=== PATIENT | female | born 1950 | race Caucasian/White ===

== ENCOUNTER 2024-03-11 10:06 | Inpatient (IN) | payer OTHER, MEDICAID ==
[2024-03-11] VITALS (8 sets, daily range): BP systolic 139–198; BP diastolic 60–102; PULSE 32–42; RESP 13–25; TEMP 98.3; O2SAT 95–97
[~2024-03-11] VITALS: Ht 162.6 cm; Wt 59.0 kg
[~2024-03-11 10:06] MED LIST: ASPirin 325 MG TAB PO ONE
--- NOTE | 2024-03-11 10:30 | ED.PDOC ---
SOB-HPI HPI Comments A 73 year old female presents to the ED with a chief complaint of shortness of breath onset 2 weeks ago. Patient states she stopped taking her blood pressure medication months ago. She states her friend checked her oxygen saturation 2 days ago, and it was reading in the 80s. Patient went to urgent care today due to experiencing progressively worsening shortness of breath. Patient's heart rate was in the 30s and code assist was called. She noticed her HR was in the 30s for the past couple days but states "she was feeling ok and did not think much of it." Upon ED arrival patient's HR is 33, O2 sat 97% on RA, BP 170/66. She is currently experiencing shortness of breath, intermittent chest tightness and fatigue. Patient has a past medical history of HTN and denies current chest pain, headache, nausea, vomiting, dizziness, fever or cough. No other symptoms or modifying factors present at this time. Chief Complaint: Shortness of Breath Time Seen by MD: 10:19 Reviewed notes: Medications, Allergies Information Source: Patient Mode of Arrival: Wheelchair Severity: Moderate Timing: Weeks Duration: Intermittent History of: None Prehospital treatment: None Associated Signs and Symptoms: Other (chest tightness) Quality: Tightness Radiation: No Radiation Past Medical History PAST MEDICAL HISTORY: HTN Surgical History: Denies all surgeries HYDROGRAPHIC SURVEYOR History: No Pertinent HYDROGRAPHIC SURVEYOR History Family History Family History: Unknown Social History Smoker: Other Alcohol: Rarely Drugs: Denies Drug Use Lives In: Home Constitutional: reports: weakness; denies: chills, diaphoresis, fatigue, fever, malaise, sweats, others EENTM: denies: blurred vision, double vision, ear bleeding, ear discharge, ear drainage, ear pain, ear ringing, eye pain, eye redness, hearing loss, mouth pain, mouth swelling, nasal discharge, nose bleeding, nose congestion, nose pain, photophobia, tearing, throat pain, throat swelling, voice changes, others Respiratory: reports: shortness of breath; denies: cough, hemoptysis, orthopnea, SOB at rest, SOB with excertion, stridor, wheezing, others Cardiovascular: denies: chest pain, dizzy spells, diaphoresis, Dyspnea on exertion, edema, irregular heart beat, left arm pain, lightheadedness, palpitations, PND, syncope, others Gastrointestinal: denies: abdomen distended, abdominal pain, blood streaked bowels, constipated, diarrhea, dysphagia, difficulty swallowing, hematemesis, melena, nausea, poor appetite, poor fluid intake, rectal bleeding, rectal pain, vomiting, others Genitourinary: denies: abnormal vagina bleeding, burning, dyspareunia, dysuria, flank pain, frequency, hematuria, incontinence, pain, , vagina discharge, urgency, others Neurological: denies: dizziness, fainting, headache, left sided numbness, left sided weakness, numbness, paresthesia, pre-existing deficit, right sided numbn ess, right sided weakness, seizure, speech problems, tingling, tremors, weakness, others Musculoskeletal: denies: back pain, gout, joint pain, joint swelling, muscle pain, muscle stiffness, neck pain, others Integumetry: denies: bruises, change in color, change in hair/nails, dryness, laceration, lesions, lumps, rash, wounds, others Allergic/Immunocompromised: denies: Difficulty Healing, Frequent Infections, Hives, Itching, others Hematologic/Lymphatic: denies: anemia, blood clots, easy bleeding, easy bruising, swollen glands, others Endocrine: denies: excessive hunger, excessive sweating, excessive thirst, excessive urination, flushing, intolerance to cold, intolerance to heat, unexplained weight gain, unexplained weight loss, others Psychiatric: denies: anxiety, bipolar disorder, depression, hopeless, panic disorder, schizophrenia, sleepless, suicidal, others All Other Systems: Reviewed and Negative Physical Exam General Appearance: No Apparent Distress HEENT: Other (Pupils symmetric, no facial asymmetry) Neck: Full Range of Motion, Normal Inspection Respiratory: Decreased Breath Sounds, No Accessory Muscle Use, No Respiratory Distress Cardiovascular: Bradycardia, No Edema, No JVD Breast Exam: Deferred Gastrointestinal: Non Tender, Soft Genitalia: Deferred Pelvic: Deferred Rectal: Deferred Extremities: Normal inspection, Normal range of motion, Non-tender, No pedal edema Neurologic: Alert (Oriented x4), Normal Affect, Normal Mood, Other (Moves all extremities, no gross focal deficit) Cerebellar Function: NOT DONE Reflexes: NOT DONE Skin: Dry, Normal Color, Warm Lymphatic: NOT DONE EKG EKG : Comments Complete AV block, rate 44, QRS prolonged at 243, QTC prolonged at 569, normal axis, right bundle-branch block, nonspecific T changes. Was a procedure done? Was a procedure done?: No Differential Dx Differential Diagnosis: Cardiogenic Shock, CHF, COPD, Dysrhythmia, Myocardial infarction, Pneumonia, Pulmonary Embolism, Respiratory Distress, URI X-Ray, Labs, Meds, VS Vital Signs Date Time Temp Pulse Resp B/P (MAP) Pulse Ox O2 Delivery O2 Flow Rate FiO2 03/11/24 10:11 97.9 35 18 187/82 (117) 98 Lab Test 03/11/24 10:49 03/11/24 10:00 Range/Units Troponin I High Sensitivity 18 19 </=34 ng/L White Blood Count 8.4 4.4-10.8 10^3/uL Red Blood Count 4.66 4.0-5.20 10^6/uL Hemoglobin 14.7 12.2-16.2 g/dL Hematocrit 42.9 36.0-46.0 % Mean Corpuscular Volume 92.1 80.0-100.0 fL Mean Corpuscular Hemoglobin 31.5 28.0-32.0 pg Mean Corpuscular Hemoglobin Concent 34.2 32.0-36.0 g/dL Red Cell Distribution Width 14.1 11.8-14.3 % Platelet Count 279 140-450 10^3/uL Mean Platelet Volume 8.3 6.9-10.8 fL Neutrophils (%) (Auto) 73.3 37.0-80.0 % Lymphocytes (%) (Auto) 18.0 10.0-50.0 % Monocytes (%) (Auto) 6.8 0.0-12.0 % Eosinophils (%) (Auto) 1.4 0.0-7.0 % Basophils (%) (Auto) 0.5 0.0-2.0 % Neutrophils # (Auto) 6.2 1.6-8.6 10 ^3/uL Lymphocytes # (Auto) 1.5 0.4-5.4 10 ^3/uL Monocytes # (Auto) 0.6 0-1.3 10 ^3/uL Eosinophils # (Auto) 0.1 0-0.8 10 ^3/uL Basophils # (Auto) 0 0-0.2 10 ^3/uL Nucleated Red Blood Cells 0.1 % Sodium Level 141 136-145 mmol/L Potassium Level 4.8 3.5-5.1 mmol/L Chloride Level 108 H 98-107 mmol/L Carbon Dioxide Level 25 20-31 mmol/L Anion Gap 8 5-15 Blood Urea Nitrogen 17 9-23 mg/dL Creatinine 1.00 0.550-1.02 mg/dL Glomerular Filtration Rate Calc 59 >90 mL/min BUN/Creatinine Ratio 17.0 10.0-20.0 Serum Glucose 111 H 74-106 mg/dL Calcium Level 10.4 8.7-10.4 mg/dL B-Type Natriuretic Peptide 230.34 0-100 pg/mL PROCEDURE(s): CXRP - CHEST PORTABLE REASON: sob ORDER NUMBER(s): [id number], ACCESSION NUMBER(s): [id number] CHEST RADIOGRAPH Indication: sob Technique: Single frontal view of the chest was obtained COMPARISON: None FINDINGS: Lines and Tubes: None Lungs: Clear Pleura: No effusion. No pneumothorax. Cardiomediastinal contours: Unremarkable Bones: Unremarkable IMPRESSION: 1. No acute disease. X-Ray, Labs, Meds, VS Comment 73-year-old female with a history of hypertension complaining of shortness a breath, found to be in complete heart block at urgent Care Vitals remarkable for heart rate 35, BP 187/82 Exam remarkable for bradycardia EKG showed complete heart block at a rate of 44, prolonged intervals, right bundle-branch block, nonspecific T changes Chest x-ray no acute disease CBC, basic metabolic panel and troponin unremarkable for any abnormality of acute significance BNP pending Patient treated with the following in the ED: Case discussed with Dr. Scott, who recommended setting up for transcutaneous pacing as needed, and establishing IJ access for possible transvenous pacing if necessary. Plan is to insert a permanent pacemaker. Patient was placed on oxygen 2 L nasal cannula. Patient will require ICU admission. Time of 1ST Reevaluation: 10:49 Reevaluation 1ST: Unchanged Patient Education/Counseling: Diagnosis, Treatment, Prognosis Family Education/Counseling: No Family Present Additional Information HI Data VOL/Complexity Ordered tests: LAB, XY, EKG, ED NURSING reviewed results: TROP, TROP, TROP, CBC, BNP, UA, BMP Interpreted results: XY, EKG Disscus tx/results: patient, medical personnel, regulatory affairs consultant Departure 1 Departure Time of Disposition: 10:59 Impression: Primary Impression: Complete heart block Disposition: 09 ADMITTED INPATIENT Admit to: ICU Condition: Serious Critical Care Note Critical Care Time?: Yes (45 min-critical care time only) Critical care comment: Critical care time including multiple bedside re-evaluations, review of lab and imaging studies, and discussion of the case with the admitting and consulting providers. Patient is high risk for hemodynamic and/or respiratory decompensation. Stability Stability form required: No Heart Score Heart Score: Heart Score Response (Comments) Value History Moderate Suspicious [address]-Deviation 2 Age >65 2 Risk Factors 1 or 2 risk factors 1 Troponin Normal limit 0 Total 6 I personally scribed for RYLEE LO MD ([email or web address]) on 03/11/24 at 1 0:30. Electronically submitted by Marci Johnson ([email or web address]). I personally scribed for RYLEE LO MD ([email or web address]) on 03/11/24 at 12:30. Electronically submitted by Marci Johnson ([email or web address]). RYLEE LO MD Mar 11, 2024 10:30
[2024-03-11 10:36] LABS: Basophils # (auto) 0 10 ^3/uL (0-0.2); Basophils % (auto) 0.5 % (0.0-2.0); Eosinophils # (auto) 0.1 10 ^3/uL (0-0.8); Eosinophils % (auto) 1.4 % (0.0-7.0); Hematocrit 42.9 % (36.0-46.0); Hemoglobin 14.7 g/dL (12.2-16.2); Lymphocytes # (auto) 1.5 10 ^3/uL (0.4-5.4); Mean Corpuscular Hemoglobin 31.5 pg (28.0-32.0); Mean Corpuscular Hgb Conc. 34.2 g/dL (32.0-36.0); Mean Corpuscular Volume 92.1 fL (80.0-100.0); Monocytes # (auto) 0.6 10 ^3/uL (0-1.3); Monocytes % (auto) 6.8 % (0.0-12.0); Neutrophils # (auto) 6.2 10 ^3/uL (1.6-8.6); Neutrophils % (auto) 73.3 % (37.0-80.0); Nucleated Red Blood Cells % 0.1 %; Platelet Count (auto) 279 10^3/uL (140-450); Red Blood Cells 4.66 10^6/uL (4.0-5.20); Red Cell Distribution Width 14.1 % (11.8-14.3); White Blood Cell 8.4 10^3/uL (4.4-10.8)
[2024-03-11 10:46] LABS: Potassium 4.8 mmol/L (3.5-5.1); Sodium 141 mmol/L (136-145)
[2024-03-11 10:47] LABS: Anion Gap 8 (5-15); Carbon Dioxide 25 mmol/L (20-31)
[2024-03-11 10:48] LABS: Calcium 10.4 mg/dL (8.7-10.4)
[2024-03-11 10:52] LABS: Blood Urea Nitrogen 17 mg/dL (9-23)
[2024-03-11 10:54] LABS: Chloride 108 mmol/L (98-107); Glucose 111 mg/dL (74-106)
--- NOTE | 2024-03-11 10:58 | DVH ---
CHEST RADIOGRAPH Indication: sob Technique: Single frontal view of the chest was obtained COMPARISON: None FINDINGS: Lines and Tubes: None Lungs: Clear Pleura: No effusion. No pneumothorax. Cardiomediastinal contours: Unremarkable Bones: Unremarkable IMPRESSION: 1. No acute disease.
[2024-03-11] MEDS ORDERED: LORazepam 0.5 MG TAB PO PRN (12:15)
[2024-03-11] MEDS ORDERED: MORPHINE SULFATE INJ 2 MG/ml SYRG IV PRN (12:15)
[2024-03-11] MEDS ORDERED: NITROGLYCERIN 0.4 MG SL TAB SL PRN (12:15)
[2024-03-11] MEDS ORDERED: ONDANSETRON HCL 4 MG/2 ML VIAL IV PRN (12:15)
[2024-03-11] MEDS ORDERED: ZOLPIDEM TARTRATE 5 MG TAB PO PRN (12:15)
[2024-03-11] MEDS ORDERED: MAALOX PLUS or MAALOX 30 ML PO PRN (12:15)
[2024-03-11] MEDS ORDERED: DEXTROSE (50%) 50ML SYRG IV PRN (12:30)
--- NOTE | 2024-03-11 12:49 | DVHHP2 ---
History of Present Illness Reason for Visit: Shortness of breath History of Present Illness 73-year-old with a history of hypertension comes into the ED with complaints of shortness of breath for the past 2 weeks patient states that she stopped taking all her medication months ago 2 days ago patient states that she was being ev aluated at an urgent care facility where she had progressive worsening shortness of breath patient was hypoxic and had very high blood pressure when patient was again evaluated in the urgent care they recommended patient come to the ED for further evaluation on ED evaluation patient was having signs of bradycardia as well as hypotension patient was recommended for further evaluation and management in the inpatient setting Cardiovascular: HTN Review of Systems Constitutional: Yes: Weakness; No: Fever, Chills, Sweats, Malaise, Other Eyes: No: Pain, Vision change, Conjunctivae inflammation, Eyelid inflammation, Other, Redness ENT: No: Ear pain, Ear discharge, Nose pain, Nose discharge, Nose congestion, Mouth pain, Mouth swelling, Throat pain, Throat swelling, Other Respiratory: Cough, Shortness of breath; No: Dry, SOB with excertion, Wheezing, Hemoptysis, Pleuritic Pain, Sputum, Wheezing, Other Cardiovascular: Chest Pain, Palpitations; No: Orthopnea, Paroxysmal Noc. Dyspnea, Edema, Lt Headedness, Other Gastrointestinal: No: Nausea, Vomiting, Abdominal Pain, Diarrhea, Constipation, Melena, Hematochezia, Other Genitourinary: No Dysuria, No Frequency, No Incontinence, No Hematuria, No Retention, No Other Musculoskeletal: No: other, neck pain, shoulder pain, arm pain, back pain, hand pain, leg pain, foot pain Skin: No: Rash, Lesions, Jaundice, Bruising, Other Neurological: No: Weakness, Numbness, Incoordination, Change in speech, Confusion, Seizures, Other Medications Current Medications Medications Dose Ordered Sig/Hector Route Start Time Stop Time Status Last Admin Dose Admin Sodium Chloride 1,000 ml @ 75 mls/hr [id number] IV 03/11/24 12:15 UNV Aspirin 81 mg DAILY PO 03/12/24 10:00 UNV Aspirin 325 mg DAILY PO 03/12/24 10:00 UNV Atorvastatin Calcium 40 mg HS PO 03/11/24 22:00 UNV Carvedilol 6.25 mg Q12HR PO 03/11/24 22:00 UNV Acetaminophen 650 mg Q6HP PRN PO 03/11/24 12:15 UNV Zolpidem Tartrate 5 mg QHSP PRN PO 03/11/24 12:15 UNV Lorazepam 0.5 mg Q6HP PRN PO 03/11/24 12:15 UNV Docusate Sodium 100 mg DAILY PO 03/12/24 10:00 UNV Ondansetron HCl 4 mg Q4HP PRN IV 03/11/24 12:15 UNV Al Hydrox/Mg Hydrox/Simethicone 30 ml Q6HR PRN PO 03/11/24 12:15 UNV Nitroglycerin 0.4 mg Q5MINP PRN SL 03/11/24 12:15 UNV Morphine Sulfate 2 mg Q30M PRN IV 03/11/24 12:15 UNV Diagnostic Test (Pha) 1 strip IQ4HR 03/11/24 16:00 UNV Insulin Human Regular IQ4HR SC 03/11/24 16:00 UNV Dextrose 50 ml UD PRN IV 03/11/24 12:30 UNV Exam Vital Signs Vital Signs Date Time Temp Pulse Resp B/P (MAP) Pulse Ox O2 Delivery O2 Flow Rate FiO2 03/11/24 10:11 97.9 35 18 187/82 (117) 98 General Appearance: Alert, Oriented X3, Cooperative HEENT: Atraumatic, PERRLA, EOMI Respiratory: Clear to auscultation, Normal air movement Cardiovascular: Regular rate (Bradycardia complete heart block), Normal S1, Normal S2 Abdominal: Normal bowel sounds, Soft, No tenderness Extremities: No clubbing, No cyanosis, No edema Skin: No rashes, No breakdown, No significant lesion Neuro: Normal gait, Normal speech Psych/Mental Status: Mood NL Labs/Xrays Labs Test 03/11/24 10:49 03/11/24 10:00 Range/Units Troponin I High Sensitivity 18 </=34 ng/L White Blood Count 8.4 4.4-10.8 10^3/uL Red Blood Count 4.66 4.0-5.20 10^6/uL Hemoglobin 14.7 12.2-16.2 g/dL Hematocrit 42.9 36.0-46.0 % Mean Corpuscular Volume 92.1 80.0-100.0 fL Mean Corpuscular Hemoglobin 31.5 28.0-32.0 pg Mean Corpuscular Hemoglobin Concent 34.2 32.0-36.0 g/dL Red Cell Distribution Width 14.1 11.8-14.3 % Platelet Count 279 140-450 10^3/uL Mean Platelet Volume 8.3 6.9-10.8 fL Neutrophils (%) (Auto) 73.3 37.0-80.0 % Lymphocytes (%) (Auto) 18.0 10.0-50.0 % Monocytes (%) (Auto) 6.8 0.0-12.0 % Eosinophils (%) (Auto) 1.4 0.0-7.0 % Basophils (%) (Auto) 0.5 0.0-2.0 % Neutrophils # (Auto) 6.2 1.6-8.6 10 ^3/uL Lymphocytes # (Auto) 1.5 0.4-5.4 10 ^3/uL Monocytes # (Auto) 0.6 0-1.3 10 ^3/uL Eosinophils # (Auto) 0.1 0-0.8 10 ^3/uL Basophils # (Auto) 0 0-0.2 10 ^3/uL Nucleated Red Blood Cells 0.1 % Sodium Level 141 136-145 mmol/L Potassium Level 4.8 3.5-5.1 mmol/L Chloride Level 108 H 98-107 mmol/L Carbon Dioxide Level 25 20-31 mmol/L Anion Gap 8 5-15 Blood Urea Nitrogen 17 9-23 mg/dL Creatinine 1.00 0.550-1.02 mg/dL Glomerular Filtration Rate Calc 59 >90 mL/min BUN/Creatinine Ratio 17.0 10.0-20.0 Serum Glucose 111 H 74-106 mg/dL Calcium Level 10.4 8.7-10.4 mg/dL B-Type Natriuretic Peptide 230.34 0-100 pg/mL Assessment/Plan Assessment/Plan Admit to ICU Complete heart block Evaluation of Cardiology Patient with the EKG showing bradycardia Signs of right bundle branch block And signs of complete heart block Patient with hypertension Mild hyperglycemia Case was already discussed with Cardiology Patient is currently placed on transcutaneous pacing CCT 40 mins Plan discussed with: Patient My Orders Orders - CARLOS HERNANDEZ MD Procedure Category Date Status Time * Cardiology Consult CONS 03/11/24 Transmitted 12:10 Code Status CODE 03/11/24 Transmitted 12:10 Cardiac DIET 03/11/24 Transmitted Diet-2gna,Lofat,Lochol Lunch Sodium Chloride 0.9% PHA 03/11/24 Logged 12:15 Aspirin Tablet PHA 03/12/24 Logged 10:00 Aspirin Tablet PHA 03/12/24 Logged 10:00 Atorvastatin (Lipitor) PHA 03/11/24 Logged 22:00 Carvedilol Tablet PHA 03/11/24 Logged (Coreg Tablet) 22:00 Acetaminophen Tablet PHA 03/11/24 Logged (Tylenol Tablet) 12:15 Zolpidem Tartrate PHA 03/11/24 Logged (Ambien) 12:15 Lorazepam Tablet PHA 03/11/24 Logged (Ativan Tablet) 12:15 Docusate Sodium PHA 03/12/24 Logged Capsule (Colace 10:00 Complete Blood Count LAB 03/12/24 Verified 04:00 Basic Metabolic Panel LAB 03/12/24 Verified 04:00 Ondansetron Hcl PHA 03/11/24 Logged (Zofran) 12:15 Electrocardigram EKG 03/11/24 Logged 12:10 Alum & Mag PHA 03/11/24 Logged Hydrox-Simethicone 12:15 Cardiac SACHI 03/11/24 In Process Rehabilitation - Outpa Nitroglycerin PHA 03/11/24 Logged Sublingual (Ntrostat 12:15 Morphine Sulfate PHA 03/11/24 Logged Injection 12:15 Stat Ekg For Chest BANNER 03/11/24 In Process Pain 12:10 Notify Md Of Changes BANNER 03/11/24 In Process From Base 12:10 Senior Research Analyst For SACHI 03/11/24 In Process 24 Hours 12:10 Emergency Dysrhythmia BANNER 03/11/24 In Process Protocol 12:10 Rhythm Strips Once BANNER 03/11/24 In Process Every Shift 12:10 Oxygen By Nasal RT 03/11/24 Transmitted Cannula 12:10 Glucose Blood PHA 03/11/24 Logged (Accu-Chek Comfort 16:00 Insulin R (Human) PHA 03/11/24 Logged (Insulin R) 16:00 Dextrose 50% Syringe PHA 03/11/24 Logged 12:30 Admit ADMIT 03/11/24 Transmitted 12:32 Problem List: (1) Hypertension (2) Complete heart block Date of Service: Mar 11, 2024 Billing Provider: CARLOS HERNANDEZ MD Common Visit Codes: [id number] INP/OBS CARE (HIGH) CARLOS HERNANDEZ MD Mar 11, 2024 12:48
--- NOTE | 2024-03-11 15:04 | DVH ---
EXAM: XY CHEST XRAY 1 VIEW TECHNIQUE: Single frontal chest radiograph CLINICAL HISTORY: Central line placement COMPARISON: XY CHEST PORTABLE on DOS: 03/11/24 Findings/Impression: Frontal chest radiograph demonstrates no acute osseous or superficial soft tissue abnormalities. Right IJ catheter terminates in the right atrium. The trachea is midline. Borderline cardiomegaly. No pneumothorax, pleural effusions, or consolidations.
[2024-03-11] MEDS: ASPirin 325 MG TAB PO ONE (15:30)
--- NOTE | 2024-03-11 15:48 | DVHINCON2 ---
Date Seen: Mar 11, 2024 Referring Physician Omar Reason for Consultation Complete Heart Block History of Present Illness 73-year-old female with PMH for HTN not taking her lisinopril for a couple of months now presents to the hospital with generalized weakness. Patient states that she also has a history of low heart rate though noticed that it was getting even lower. Patient has had no energy and is usually laid up in bed. Denies any chest pain, shortness of breath. Does occasionally get palpitations. Upon evaluation in the ER patient noted to be in complete heart block with heart rate in the 30s. Troponins trending negative x4. Patient also had some uncontrolled HTN. Past Medical History HTN not on medication Past Surgical History Denies previous cardiac surgeries Family History Denies pertinent family cardiac history Social History Quit smoking couple of days ago per patient, usually half a pack every 2-3 days. Denies alcohol or illicit drug use. Allergies: Coded Allergies: NO KNOWN ALLERGIES (Unverified , 03/11/24) Current Medications Current Medications Medications (Trade) Dose Ordered Sig/Hector Route PRN Reason Start Time Stop Time Status Last Admin Sodium Chloride 1,000 ml @ 75 mls/hr [id number] IV 03/11/24 12:15 Aspirin 81 mg DAILY PO 03/12/24 10:00 Atorvastatin Calcium (Lipitor) 40 mg HS PO 03/11/24 22:00 Carvedilol (Coreg Tablet) 6.25 mg Q12HR PO 03/11/24 22:00 03/11/24 15:32 DC Acetaminophen (Tylenol Tablet) 650 mg Q6HP PRN PO MILD PAIN (1-3 PAIN SCALE) 03/11/24 12:15 Zolpidem Tartrate (Ambien) 5 mg QHSP PRN PO FOR INSOMNIA 03/11/24 12:15 Lorazepam (Ativan Tablet) 0.5 mg Q6HP PRN PO ANXIETY 03/11/24 12:15 Docusate Sodium (Colace Capsule) 100 mg DAILY PO 03/12/24 10:00 Ondansetron HCl (Zofran) 4 mg Q4HP PRN IV NAUSEA / VOMITING 03/11/24 12:15 Al Hydrox/Mg Hydrox/Simethicone (Maalox Plus) 30 ml Q6HR PRN PO FOR STOMACH DISTRESS 03/11/24 12:15 Nitroglycerin (Ntrostat Sublingual) 0.4 mg Q5MINP PRN SL FOR CHEST PAIN 03/11/24 12:15 Morphine Sulfate 2 mg Q30M PRN IV FOR CHEST PAIN 03/11/24 12:15 Diagnostic Test (Pha) (Accu-Chek Comfort Curve T) 1 strip IQ4HR 03/11/24 16:00 Insulin Human Regular (InsuLIN R) IQ4HR SC 03/11/24 16:00 Dextrose 50 ml UD PRN IV Blood Sugar LESS THAN 60 03/11/24 12:30 Amlodipine Besylate (Norvasc Tablet) 10 mg DAILY PO 03/11/24 15:30 Losartan Potassium (Cozaar Tablet) 50 mg DAILY PO 03/11/24 15:30 Hydralazine HCl (Apresoline Injection) 10 mg Q6HP PRN IV SBP>170 03/11/24 15:30 Review of Systems Constitutional: No: Fever, Chills, Sweats, , Other positive: Weakness, Malaise Eyes: No: Pain, Vision change, Conjunctivae inflammation, Eyelid inflammation, Other, Redness ENT: No: Ear pain, Ear discharge, Nose pain, Nose discharge, Nose congestion, Mouth pain, Mouth swelling, Throat pain, Throat swelling, Other Respiratory: No: Cough, Dry, Shortness of breath, SOB with exertion, Wheezing, Hemoptysis, Pleuritic Pain, Sputum, Wheezing, Other Cardiovascular: ; No: Chest Pain , Orthopnea, Paroxysmal Noc. Dyspnea, Edema, Lt Headedness, Other positive: Palpitations Gastrointestinal: No: Nausea, Vomiting, Abdominal Pain, Diarrhea, Constipation, Melena, Hematochezia, Other Genitourinary: No Dysuria, No Frequency, No Incontinence, No Hematuria, No Retention, No Other Musculoskeletal: neck pain; No: other, shoulder pain, arm pain, back pain, hand pain, leg pain, foot pain Skin: No: Rash, Lesions, Jaundice, Bruising, Other Neurological: Other (, hDizzinesseadache.); No: Weakness, Numbness, Incoordination, Change in speech, Confusion, Seizures Vital Signs Vital Signs Date Time Temp Pulse Resp B/P (MAP) Pulse Ox O2 Delivery O2 Flow Rate FiO2 03/11/24 12:00 32 15 162/74 (103) 96 03/11/24 11:00 Room Air* 0 21 03/11/24 10:18 97.9 97.9 Physical Exam General appearance: Patient is well-developed, well-nourished, in no acute distress. HEENT: Exam shows: Normocephalic, atraumatic, PERRLA, EOMI Neck: Supple, no bruits Chest: Equal chest excursion bilaterally. Breath sounds normal-no rales or wheezes. Heart: Rhythm: Bradycardia; no murmur or gallop Abdomen: Exam shows: Soft, nontender, nondistended Musculoskeletal: No clubbing, no cyanosis, no lower extremity edema Dermatology: Skin warm, moist. Neurological: Exam shows: Alert and oriented x4, normal speech Available prior records, labs, EKG, rhythm strips reviewed and interpreted Labs/Diagnostic Data Labs Test 03/11/24 14:33 03/11/24 10:00 Range/Units Troponin I High Sensitivity 19 </=34 ng/L White Blood Count 8.4 4.4-10.8 10^3/uL Red Blood Count 4.66 4.0-5.20 10^6/uL Hemoglobin 14.7 12.2-16.2 g/dL Hematocrit 42.9 36.0-46.0 % Mean Corpuscular Volume 92.1 80.0-100.0 fL Mean Corpuscular Hemoglobin 31.5 28.0-32.0 pg Mean Corpuscular Hemoglobin Concent 34.2 32.0-36.0 g/dL Red Cell Distribution Width 14.1 11.8-14.3 % Platelet Count 279 140-450 10^3/uL Mean Platelet Volume 8.3 6.9-10.8 fL Neutrophils (%) (Auto) 73.3 37.0-80.0 % Lymphocytes (%) (Auto) 18.0 10.0-50.0 % Monocytes (%) (Auto) 6.8 0.0-12.0 % Eosinophils (%) (Auto) 1.4 0.0-7.0 % Basophils (%) (Auto) 0.5 0.0-2.0 % Neutrophils # (Auto) 6.2 1.6-8.6 10 ^3/uL Lymphocytes # (Auto) 1.5 0.4-5.4 10 ^3/uL Monocytes # (Auto) 0.6 0-1.3 10 ^3/uL Eosinophils # (Auto) 0.1 0-0.8 10 ^3/uL Basophils # (Auto) 0 0-0.2 10 ^3/uL Nucleated Red Blood Cells 0.1 % Sodium Level 141 136-145 mmol/L Potassium Level 4.8 3.5-5.1 mmol/L Chloride Level 108 H 98-107 mmol/L Carbon Dioxide Level 25 20-31 mmol/L Anion Gap 8 5-15 Blood Urea Nitrogen 17 9-23 mg/dL Creatinine 1.00 0.550-1.02 mg/dL Glomerular Filtration Rate Calc 59 >90 mL/min BUN/Creatinine Ratio 17.0 10.0-20.0 Serum Glucose 111 H 74-106 mg/dL Calcium Level 10.4 8.7-10.4 mg/dL B-Type Natriuretic Peptide 230.34 0-100 pg/mL Assessment * Complete Heart Block - bedside transcutaneous pacer backup. Avoid AV susan blockers. Check TSH and FT4. Follow-up echo. May restart on isoproterenol drip if needed. Plan for ppm on Wednesday, NPO after midnight 03/13/2024. * HTN - amlodipine 10 mg p.o. daily and losartan 50 mg p.o. daily started. Continue trending. * Medication noncompliance - strongly advised compliance with medication. * Elevated BNP - patient seems euvolemic. CXR negative for congestion/edema. Follow-up echo. Case Discussed with Dr Scott. Complete heart block. Follow up thyroid panel and echocardiogram. Avoid AV susan blockers. Transcutaneous pacer pads standby. DVT prophylaxis. Plan for permanent pacemaker implantation on Wednesday. Critical care, time spent: 48 minutes This medical document was created using an electronic medical record system with voice recognition software and computerized dictation system. Although this document has been carefully reviewed, there might still be some phonetic and typographical errors. Occasional wrong-word or ``sound-alike substitutions may have occurred due to the inherent limitations of voice recognition software. These areas are purely typographical due to imperfections of the software programs and do not reflect any compromise in the patient's medical care. Please read the chart carefully and recognize, using context, where these substitutions have occurred. Plan discussed with: Patient Date of Service: Mar 11, 2024 Billing Provider: SHASHI SCOTT MD Cardiology Common Codes: [id number] INP/OBS CARE (High), [id number] CARE 30-[address] [facility] Mar 11, 2024 15:48
[2024-03-11] MEDS: LOSARTAN POTASSIUM 50 MG TAB PO SCH (15:59)
[2024-03-11] MEDS: amLODIPine BESYLATE 5 MG TAB PO SCH (15:59)
[2024-03-11] MEDS: InsuLIN REG 1unit/0.01ml Soln (100units/ml) SC SCH (15:59)
[2024-03-11] MEDS: ACCU-CHEK COMFORT CURVE STRIP VI SCH (15:59)
[2024-03-11] MEDS: SODIUM CHLORIDE 0.9% 1,000 ML IV SCH (15:59)
[2024-03-11 16:41] LABS: Triglycerides 120 mg/dL (< 150)
[2024-03-11 16:42] LABS: HDL Cholesterol 50 mg/dL (40-59)
[2024-03-11 16:43] LABS: Cholesterol 183 mg/dL (< 200)
[2024-03-11 16:44] LABS: LDL Cholesterol 113 mg/dL (< 100)
[2024-03-11] MEDS: hydrALAZINE HCL 20 MG/ML VL IV PRN (17:03)
--- NOTE | 2024-03-11 18:48 | DVHNC2 ---
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) Indication: Other (bradycardia) Room prepared for procedure: Yes Photo Technologist performed hand hygien: Yes Maximal sterile barrier precau: Mask/Eye shield, Sterile gown, Cap, Sterlie gloves, Large sterlie drape Skin Preparation: Chlorhexidine gluconate Skin preparation completely dr: Yes Insertion site: Right, Internal jugular Central line catheter type: Iju-[id number] dialysis Number of lumens: 3 Central line exchanged over a: No Antiseptic ointment applied to: Yes Post Assessment: Chest X-Ray, Proper placement, No Pneumothorax Informed consent obtained: Yes Risks/benefits/alt described: Yes Notes Patient was informed and educated about the procedure ahead of time and she consented to it. Site for Central line insertion was identified using ultrasound. I was gown in strile gown with my hair covered and wore a strile gloves. The site ( left neck) was clean thoroughly in antiseptic manner. Prepared the guide wire, the dilator, and the central line. Ultrasound probe was covered with a strile plastic cover. Under US guidance, I located the internal jugular vein. First use the lidocaine to anesthetize the area. The I went in with the needle into the internal jugular vein. Aspirated to ensure that I was in the right localization. Then made a small skin incision to allow enough room for the dilator. The director was used to advance the channel for the central line. Now the centraline was passed over the guidewire and was advance into internal jugular vein. Then central was secured in place with a suture. The procedure was supervised by Dr. Bonner Date of Service: Mar 11, 2024 Billing Provider: JOSEY FLOR Common Visit Codes: PROCEDURE ONLY JOSEY FLOR Mar 11, 2024 18:48
[2024-03-11] MEDS: ATORVASTATIN 20 MG TAB PO SCH (22:00)
[2024-03-11] MEDS ORDERED: CARVEDILOL 3.125 MG TAB PO SCH (22:00)
[2024-03-12] VITALS (33 sets, daily range): BP systolic 132–221; BP diastolic 48–119; PULSE 34–39; RESP 9–26; TEMP 97.8–98.1; O2SAT 94–98
[2024-03-12 07:41] LABS: Basophils # (auto) 0 10 ^3/uL (0-0.2); Basophils % (auto) 0.3 % (0.0-2.0); Eosinophils # (auto) 0.2 10 ^3/uL (0-0.8); Eosinophils % (auto) 2.4 % (0.0-7.0); Hematocrit 42.8 % (36.0-46.0); Hemoglobin 14.4 g/dL (12.2-16.2); Lymphocytes # (auto) 1.5 10 ^3/uL (0.4-5.4); Lymphocytes % (auto) 18.1 % (10.0-50.0); Mean Corpuscular Hemoglobin 30.9 pg (28.0-32.0); Mean Corpuscular Hgb Conc. 33.7 g/dL (32.0-36.0); Mean Corpuscular Volume 91.8 fL (80.0-100.0); Monocytes # (auto) 0.8 10 ^3/uL (0-1.3); Monocytes % (auto) 9.4 % (0.0-12.0); Neutrophils # (auto) 5.7 10 ^3/uL (1.6-8.6); Neutrophils % (auto) 69.8 % (37.0-80.0); Nucleated Red Blood Cells % 0.1 %; Platelet Count (auto) 263 10^3/uL (140-450); Red Blood Cells 4.67 10^6/uL (4.0-5.20); Red Cell Distribution Width 14.1 % (11.8-14.3); White Blood Cell 8.1 10^3/uL (4.4-10.8)
[2024-03-12 08:25] LABS: Anion Gap 8 (5-15); Calcium 9.8 mg/dL (8.7-10.4); Carbon Dioxide 23 mmol/L (20-31); Potassium 4.2 mmol/L (3.5-5.1); Sodium 141 mmol/L (136-145)
[2024-03-12 08:30] LABS: BUN/Creatinine Ratio 19.3 (10.0-20.0); Blood Urea Nitrogen 16 mg/dL (9-23)
[2024-03-12 08:40] LABS: Chloride 110 mmol/L (98-107); Glucose 111 mg/dL (74-106)
[2024-03-12] MEDS: DOCUSATE SOD 100 MG CAP PO SCH (10:00)
[2024-03-12] MEDS: ASPirin 81 mg TAB PO SCH (10:00)
[2024-03-12] MEDS: LOSARTAN POTASSIUM 50 MG TAB PO SCH (10:44)
[2024-03-12] MEDS: NIFEdipine ER 30 MG TAB PO SCH (11:00)
--- NOTE | 2024-03-12 12:14 | DVHPN2 ---
Consult Progress Note Subjective Patient reports: No new complaints Objective vital signs Vital Sign Date Time Temp Pulse Resp B/P (MAP) Pulse Ox O2 Delivery O2 Flow Rate FiO2 03/12/24 11:00 149/119 03/12/24 10:31 36 9 96 03/12/24 10:00 Room Air* 0 21 03/12/24 08:01 98.1 98.1 Total Intake and Output 03/11/24 03/11/24 03/12/24 15:00 23:00 07:00 Intake Total 765 ml 600 ml Balance 765 ml 600 ml medications Current Medications Medications Dose Ordered Sig/Hector Route Start Time Stop Time Status Last Admin Dose Admin Sodium Chloride 1,000 ml @ 75 mls/hr [id number] IV 03/11/24 12:15 03/12/24 06:30 75 MLS/HR Aspirin 81 mg DAILY PO 03/12/24 10:00 Atorvastatin Calcium 40 mg HS PO 03/11/24 22:00 Acetaminophen 650 mg Q6HP PRN PO 03/11/24 12:15 Zolpidem Tartrate 5 mg QHSP PRN PO 03/11/24 12:15 Lorazepam 0.5 mg Q6HP PRN PO 03/11/24 12:15 Docusate Sodium 100 mg DAILY PO 03/12/24 10:00 Ondansetron HCl 4 mg Q4HP PRN IV 03/11/24 12:15 Al Hydrox/Mg Hydrox/Simethicone 30 ml Q6HR PRN PO 03/11/24 12:15 Nitroglycerin 0.4 mg Q5MINP PRN SL 03/11/24 12:15 Morphine Sulfate 2 mg Q30M PRN IV 03/11/24 12:15 Diagnostic Test (Pha) 1 strip IQ4HR 03/11/24 16:00 03/12/24 08:00 1 STRIP Insulin Human Regular IQ4HR SC 03/11/24 16:00 Dextrose 50 ml UD PRN IV 03/11/24 12:30 Hydralazine HCl 10 mg Q6HP PRN IV 03/11/24 15:30 03/11/24 17:03 10 MG Losartan Potassium 100 mg DAILY PO 03/12/24 10:00 03/12/24 10:44 100 MG Nifedipine 60 mg DAILY PO 03/12/24 10:00 03/12/24 11:00 60 MG Examination: CVS:Abnormal (Complete HB, Bradycardia) laboratory and microbiology Laboratory Tests 03/12/24 07:19 Test 03/12/24 07:19 Range/Units Serum Glucose 111 H 74-106 mg/dL Problem List/Assessment/Plan Problem List/Assessment/Plan * Complete Heart Block - bedside transcutaneous pacer backup. Avoid AV susan blockers. Check TSH and FT4. Follow-up echo. Plan for ppm on tomorrow, NPO after midnight 03/13/2024. * Uncontrolled HTN - Nifedipine 60 mg mg p.o. daily, losartan increased to 100 mg p.o. daily. Continue trending. * Medication noncompliance - strongly advised compliance with medication. * Elevated BNP - patient seems euvolemic. CXR negative for congestion/edema. Follow-up echo. Case Discussed with Dr Scott. Complete heart block. Normal TSH. Follow up echocardiogram. Avoid AV susan blockers. Transcutaneous pacer pads standby. DVT prophylaxis. Plan for permanent pacemaker implantation on tomorrow. Critical care, time spent: 38 minutes This medical document was created using an electronic medical record system with voice recognition software and computerized dictation system. Although this document has been carefully reviewed, there might still be some phonetic and typographical errors. Occasional wrong-word or ``sound-alike substitutions may have occurred due to the inherent limitations of voice recognition software. These areas are purely typographical due to imperfections of the software programs and do not reflect any compromise in the patient's medical care. Please read the chart carefully and recognize, using context, where these substitutions have occurred. Plan discussed with: Patient Date of Service: Mar 12, 2024 Billing Provider: SHASHI SCOTT MD Common Visit Codes: [id number] INP/OBS CARE(HIGH) BETY NEVAREZ AGACNP Mar 12, 2024 12:14
--- NOTE | 2024-03-12 13:03 | DVHPN2 ---
Subjective The patient seen and examined at bedside. The patient complains of chest pain. No shortness of breath. Reviewed: Care Plan, H&P, Labs, Medications, Previous Orders, Radiology Changes from previous H/P or p: No Changes Eyes: No Pain, No Vision change, No Conjunctivae inflammation, No Eyelid inflammation, No Other, No Redness ENT: No Ear pain, No Ear discharge, No Nose pain, No Nose discharge, No Nose congestion, No Mouth pain, No Mouth swelling, No Throat pain, No Throat swelling, No Other Cardiovascular: Chest Pain, Palpitations Respiratory: Cough, Shortness of breath Gastrointestinal: No Nausea, No Vomiting, No Abdominal Pain, No Diarrhea, No Constipation, No Melena, No Hematochezia, No Other Genitourinary: No Dysuria, No Frequency, No Incontinence, No Hematuria, No Retention, No Other Musculoskeletal: No other, No neck pain, No shoulder pain, No arm pain, No back pain, No hand pain, No leg pain, No foot pain Skin: No Rash, No Lesions, No Jaundice, No Bruising, No Other Objective Vitals Vital Signs Date Time Temp Pulse Resp B/P (MAP) Pulse Ox O2 Delivery O2 Flow Rate FiO2 03/12/24 12:30 36 10 176/59 (98) 96 03/12/24 12:00 97.8 97.8 03/12/24 10:00 Room Air* 0 21 Intake/Output Intake and Output 03/12/24 07:00 Intake Total 1365 ml Balance 1365 ml Intake Oral 240 ml IV Total 1125 ml # Voids 1 General Appearance: Alert, Cooperative, No acute distress HEENT: Atraumatic, PERRLA, EOMI, Mucous membr. moist/pink Neck: Supple Lungs: Clear to auscultation, Normal air movement Chest/Breasts: Discharge Cardiovascular: Regular rate, Normal S1, Normal S2, No murmurs, Gallops, Rubs Abdomen: Normal bowel sounds, Soft, No tenderness Neuro: Cranial nerves 3-12 NL Psych/Mental Status: Mental status NL Medications Current Medications Medications Dose Ordered Sig/Hector Route Start Time Stop Time Status Last Admin Dose Admin Sodium Chloride 1,000 ml @ 75 mls/hr [id number] IV 03/11/24 12:15 03/12/24 06:30 75 MLS/HR Aspirin 81 mg DAILY PO 03/12/24 10:00 Atorvastatin Calcium 40 mg HS PO 03/11/24 22:00 Acetaminophen 650 mg Q6HP PRN PO 03/11/24 12:15 Zolpidem Tartrate 5 mg QHSP PRN PO 03/11/24 12:15 Lorazepam 0.5 mg Q6HP PRN PO 03/11/24 12:15 Docusate Sodium 100 mg DAILY PO 03/12/24 10:00 Ondansetron HCl 4 mg Q4HP PRN IV 03/11/24 12:15 Al Hydrox/Mg Hydrox/Simethicone 30 ml Q6HR PRN PO 03/11/24 12:15 Nitroglycerin 0.4 mg Q5MINP PRN SL 03/11/24 12:15 Morphine Sulfate 2 mg Q30M PRN IV 03/11/24 12:15 Diagnostic Test (Pha) 1 strip IQ4HR 03/11/24 16:00 03/12/24 12:25 1 STRIP Insulin Human Regular IQ4HR SC 03/11/24 16:00 Dextrose 50 ml UD PRN IV 03/11/24 12:30 Hydralazine HCl 10 mg Q6HP PRN IV 03/11/24 15:30 03/11/24 17:03 10 MG Losartan Potassium 100 mg DAILY PO 03/12/24 10:00 03/12/24 10:44 100 MG Nifedipine 60 mg DAILY PO 03/12/24 10:00 03/12/24 11:00 60 MG Laboratory Results Laboratory Tests 03/12/24 07:19 Chemistry Test 03/12/24 07:19 Calcium Level 9.8 mg/dL (8.7-10.4) Lipid panel Test 03/11/24 15:52 Cholesterol Level 183 mg/dL (< 200) HDL Cholesterol 50 mg/dL (40-59) Triglycerides Level 120 mg/dL (< 150) HgA1c, TSH Test 03/11/24 15:52 Thyroid Stimulating Hormone (TSH) 3.35 uIU/mL (0.55-4.78) Labs and/or images reviewed: Labs reviewed by me Assessment/Plan Assessment/Plan Complete heart block Bradycardia due to heart block Uncontrolled hypertension Continuing current management. Temporal pacemaker was placed by Cardiology team Patient will be admitted to ICU for close observation of her heart Prognosis guard. Plan discussed with: Patient Date of Service: Mar 12, 2024 Billing Provider: EMILY QUINTERO MD Common Visit Codes: [id number] INP/OBS CARE(HIGH) EMILY QUINTERO MD Mar 12, 2024 13:03
--- NOTE | 2024-03-12 13:50 | DVHSR ---
APPROVED REPORT EXAM: Two-dimensional and M-mode echocardiogram with Doppler and color Doppler. Blood Pressure: 202/73 mmHg INDICATION Complete Heart Block RISK FACTORS Height: 5' 4", Weight: 130 DIMENSIONS LVDd4.6 (3.8-5.7cm)LA (2D)3.5 (1.9-4.0cm)Aortic Root3.0 (2.0-3.7cm) LVDs3.0 (2.5-4.0cm)LA (MM) (1.9-4.0cm)Aortic Cusp Exc1.7 (1.5-2.0cm) EF (%) 62.0 (55-70%)Rt. Atrium3.3 (1.9-4.0cm)Asc. Aorta cm IVSd1.0 (0.7-1.1cm)RV (D) (1.8-2.4cm) PWd0.9 (0.7-1.1cm) Mitral Valve MitralMitral Stenosis E wave1.20m/sMV Mean GR.mmHg A wave0.90m/sMV Peak GR.mmHg E/A ratio1.32D MVAcm2 Aortic Valve Aortic ValveAortic Stenosis V11.20m/José Miguel Mean GR.10mmHg V22.60m/José Miguel Peak GR.27mmHg LVOT Diameter2.1 (1.8-2.4cm)Doppler AVA1.60cm2 Pulmonic Valve V21.10m/s Tricuspid Valve TR Velocity2.40m/s [id number] Other Information Quality : Technically LimitedRhythm : Bradycardia Technically limited study due to body habitus. Conclusion Normal left ventricular size and dimension. Normal left ventricular systolic function with estimated ejection fraction 55%. There is a grade 1 diastolic dysfunction. Normal right ventricular size and dimension. Normal right ventricular systolic function. Slightly i ncreased right ventricular systolic pressure 30 mm of mercury. Normal biatrial size and dimension. Normal aortic valve structure and function. Normal mitral valve structure and function. Normal tricuspid valve structure and function. The pulmonary valve is grossly normal. No pericardial effusion.
[2024-03-12] MEDS: ACETAMINOPHEN 325 MG TAB PO PRN (19:37)
[2024-03-13] VITALS (10 sets, daily range): BP systolic 117–194; BP diastolic 78–120; PULSE 34–94; RESP 12–18; TEMP 97.6–97.9; O2SAT 90–97
--- NOTE | 2024-03-13 06:56 | ECG ---
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
[2024-03-13 07:28] LABS: Urine Bacteria None Seen /hpf (None Seen)
[2024-03-13 07:58] LABS: Urine Blood Negative /uL (Negative); Urine Clarity Clear (Clear); Urine Color Colorless (Yellow); Urine Protein, UAD Negative (Negative); Urine Urobilinogen Normal (Negative); Urine WBC <1 /hpf (0 - 5); Urine pH 6.5 (5.0-9.0)
--- NOTE | 2024-03-13 10:19 | DVHPN2 ---
Subjective 73-year-old female came with shortness of breaths and she was found to be bradycardic with complete heart block She is scheduled for pacemaker today No other complain Changes from previous H/P or p: Changes Eyes: No Pain, No Vision change, No Conjunctivae inflammation, No Eyelid inflammation, No Other, No Redness ENT: No Ear pain, No Ear discharge, No Nose pain, No Nose discharge, No Nose congestion, No Mouth pain, No Mouth swelling, No Throat pain, No Throat swelling, No Other Cardiovascular: Chest Pain, Palpitations Respiratory: Cough, Shortness of breath Gastrointestinal: No Nausea, No Vomiting, No Abdominal Pain, No Diarrhea, No Constipation, No Melena, No Hematochezia, No Other Genitourinary: No Dysuria, No Frequency, No Incontinence, No Hematuria, No Retention, No Other Musculoskeletal: No other, No neck pain, No shoulder pain, No arm pain, No back pain, No hand pain, No leg pain, No foot pain Skin: No Rash, No Lesions, No Jaundice, No Bruising, No Other Objective Vitals Vital Signs Date Time Temp Pulse Resp B/P (MAP) Pulse Ox O2 Delivery O2 Flow Rate FiO2 03/13/24 08:54 34 03/13/24 08:17 13 97 Room Air* 0 21 03/13/24 07:45 122/56 (78) 03/12/24 19:35 97.7 97.7 Intake/Output Intake and Output 03/13/24 07:00 Intake Total 2625 ml Balance 2625 ml IV Total 1800 ml Other 825 ml # Voids 3 General Appearance: Alert, Oriented X3, Cooperative, No acute distress Lungs: Clear to auscultation, Normal air movement Cardiovascular: Normal S1, Normal S2, Other (Cardiac around 35 beats per min) Extremities: No edema Medications Current Medications Medications Dose Ordered Sig/Hector Route Start Time Stop Time Status Last Admin Dose Admin Sodium Chloride 1,000 ml @ 75 mls/hr [id number] IV 03/11/24 12:15 03/13/24 04:20 75 MLS/HR Aspirin 81 mg DAILY PO 03/12/24 10:00 Atorvastatin Calcium 40 mg HS PO 03/11/24 22:00 Acetaminophen 650 mg Q6HP PRN PO 03/11/24 12:15 03/12/24 19:37 650 MG Zolpidem Tartrate 5 mg QHSP PRN PO 03/11/24 12:15 Lorazepam 0.5 mg Q6HP PRN PO 03/11/24 12:15 Docusate Sodium 100 mg DAILY PO 03/12/24 10:00 Ondansetron HCl 4 mg Q4HP PRN IV 03/11/24 12:15 Al Hydrox/Mg Hydrox/Simethicone 30 ml Q6HR PRN PO 03/11/24 12:15 Nitroglycerin 0.4 mg Q5MINP PRN SL 03/11/24 12:15 Morphine Sulfate 2 mg Q30M PRN IV 03/11/24 12:15 Diagnostic Test (Pha) 1 strip IQ4HR 03/11/24 16:00 03/13/24 08:26 1 STRIP Insulin Human Regular IQ4HR SC 03/11/24 16:00 Dextrose 50 ml UD PRN IV 03/11/24 12:30 Hydralazine HCl 10 mg Q6HP PRN IV 03/11/24 15:30 03/11/24 17:03 10 MG Losartan Potassium 100 mg DAILY PO 03/12/24 10:00 03/12/24 10:44 100 MG Nifedipine 60 mg DAILY PO 03/12/24 10:00 03/12/24 11:00 60 MG Laboratory Results Laboratory Tests 03/12/24 07:19 Urinalysis Test 03/13/24 07:00 Urine Color Colorless (Yellow) Urine Clarity Clear (Clear) Urine pH 6.5 (5.0-9.0) Urine Specific [place] 1.010 (1.001-1.035) Urine Protein Negative (Negative) Urine Ketones Negative (Negative) Urine Blood Negative /uL (Negative) Urine Nitrite Negative (Negative) Urine Bilirubin Negative (Negative) Urine Urobilinogen Normal mg/dL (Negative) Urine Leukocyte Esterase Negative /uL (Negative) Urine RBC None seen /hpf (0 - 4) Urine WBC <1 /hpf (0 - 5) Urine Squamous Epithelial Cells None seen /hpf (<5) Urine Bacteria None seen /hpf (None Seen) Urine Glucose Normal mg/dL (Normal) Assessment/Plan Assessment/Plan Complete heart block Bradycardia due to heart block Uncontrolled hypertension Plan ICU admission Temporary pacemaker Permanent pacemaker to be done today by Cardiology TSH was checked normal Echocardiogram was done 55% ejection fraction The rest of the management will depend on the hospital Full code Plan discussed with: Patient Date of Service: Mar 13, 2024 Billing Provider: ANETTE CALIX MD Common Visit Codes: NOT BILLABLE ANETTE CALIX MD Mar 13, 2024 10:19
[2024-03-13 10:42] LABS: INR 1.08 (0.9-1.15); Partial Thromboplastin Time 26.7 SEC (24.5-34.5); Prothrombin Time 11.4 sec (9.3-11.8)
--- NOTE | 2024-03-13 11:00 | DVHPN2 ---
Consult Progress Note Date Seen: Mar 13, 2024 Subjective Review of Systems: CVS:Normal, RESPIRATORY:Normal, NEURO:Normal Other Systems: Denies any cardiac symptoms Objective vital signs Vital Sign Date Time Temp Pulse Resp B/P (MAP) Pulse Ox O2 Delivery O2 Flow Rate FiO2 03/13/24 08:54 34 03/13/24 08:17 13 97 Room Air* 0 21 03/13/24 07:45 122/56 (78) 03/12/24 19:35 97.7 97.7 Total Intake and Output 03/12/24 03/12/24 03/13/24 15:00 23:00 07:00 Intake Total 600 ml 1425 ml 600 ml Balance 600 ml 1425 ml 600 ml medications Current Medications Medications Dose Ordered Sig/Hector Route Start Time Stop Time Status Last Admin Dose Admin Sodium Chloride 1,000 ml @ 75 mls/hr [id number] IV 03/11/24 12:15 03/13/24 04:20 75 MLS/HR Aspirin 81 mg DAILY PO 03/12/24 10:00 03/13/24 10:13 81 MG Atorvastatin Calcium 40 mg HS PO 03/11/24 22:00 Acetaminophen 650 mg Q6HP PRN PO 03/11/24 12:15 03/12/24 19:37 650 MG Zolpidem Tartrate 5 mg QHSP PRN PO 03/11/24 12:15 Lorazepam 0.5 mg Q6HP PRN PO 03/11/24 12:15 Docusate Sodium 100 mg DAILY PO 03/12/24 10:00 Ondansetron HCl 4 mg Q4HP PRN IV 03/11/24 12:15 Al Hydrox/Mg Hydrox/Simethicone 30 ml Q6HR PRN PO 03/11/24 12:15 Nitroglycerin 0.4 mg Q5MINP PRN SL 03/11/24 12:15 Morphine Sulfate 2 mg Q30M PRN IV 03/11/24 12:15 Diagnostic Test (Pha) 1 strip IQ4HR 03/11/24 16:00 03/13/24 08:26 1 STRIP Insulin Human Regular IQ4HR SC 03/11/24 16:00 Dextrose 50 ml UD PRN IV 03/11/24 12:30 Hydralazine HCl 10 mg Q6HP PRN IV 12/7/24 15:30 03/11/24 17:03 10 MG Losartan Potassium 100 mg DAILY PO 03/12/24 10:00 03/12/24 10:44 100 MG Nifedipine 60 mg DAILY PO 03/12/24 10:00 03/12/24 11:00 60 MG Examination: LUNGS:Normal, CVS:Abnormal (Complete AV block HR 30s bpm), NEURO:Normal laboratory and microbiology Laboratory Tests 03/12/24 07:19 Test 03/12/24 07:19 Range/Units Serum Glucose 111 H 74-106 mg/dL Problem List/Assessment/Plan Problem List/Assessment/Plan * Complete Heart Block - Echocardiogram revealed EF 55%. bedside transcutaneous pacer backup. Avoid AV susan blockers. Check TSH WNL. Plan for ppm on 03/13/2024. Continue NPO * Uncontrolled HTN - SBP 130s mmHg. Continue Nifedipine 60 mg mg p.o. daily, losartan 100 mg p.o. daily. Continue trending. * Medication noncompliance - strongly advised compliance with medication. Case Discussed with Dr Scott. Complete heart block. Normal TSH. Avoid AV susan blockers. Transcutaneous pacer pads on standby. Plan for permanent pacemaker implantation on 03/13/2024. Monitor ECG changes closely and notify. Fall risk precautions. Avoid ambulation. Thank you for allowing us to participate in this patient's care. Please call if you have any questions or concerns. Critical care, time spent: 30 minutes. This medical document was created using an electronic medical record system with voice recognition software and computerized dictation system. Although this document has been carefully reviewed, there might still be some phonetic and typographical errors. Occasional wrong-word or ``sound-alike substitutions may have occurred due to the inherent limitations of voice recognition software. These areas are purely typographical due to imperfections of the software programs and do not reflect any compromise in the patient's medical care. Please read the chart carefully and recognize, using context, where these substitutions have occurred. Plan discussed with: Patient, Other Date of Service: Mar 13, 2024 Billing Provider: SHASHI SCOTT MD Cardiology Common Codes: [id number] CARE 30-74 MIN BRYAN MAZARIEGOS [facility] Mar 13, 2024 11:00
[2024-03-13] MEDS: LIDOCAINE 2%HCL (LOCAL ANESTH.) INJ 20ML MDV ONE (14:48)
[2024-03-13] MEDS: MIDAZOLAM HCL 2MG/2ML 2ml VIAL (1mg/ml) ONE (14:48)
[2024-03-13] MEDS: VANCOMYCIN HCL 1000 MG VL ONE ×2 (14:48→17:02)
[2024-03-13] MEDS: fentaNYL CITRATE 100 MCG/2 ML VL ONE (14:48)
[2024-03-13] MEDS: VANCOMYCIN 1GM/250ML KIT 250 ML IV ONE (14:48)
[2024-03-13] MEDS: HEPARIN IN NS 1000Units/500mL 0 ML ONE (14:49)
[2024-03-13] MEDS: ONDANSETRON HCL 4 MG/2 ML VIAL ONE (16:44)
--- NOTE | 2024-03-13 17:49 | DVHOP2 ---
Operative Report -Cardiology Report Details Date: 03/13/24 Preop Diagnosis: Symptomatic complete heart block. Postop Diagnosis: Successful implantation of dual-chamber pacemaker via left subclavian venous access. That was done under ultrasound guidance. DDDR pacemaker was successfully placed without obvious complication. Surgeon: Elise Scott MD Anesthesiologist: Conscious sedation using25 mcg of fentanyl as well as a mg of midazolam. Patient was monitored by the primary sld educational aide myself as well as the attending nurses for total of 4-1/2 all while the patient is in the procedure. No obvious complication was detected. Anesthesia: Local Consent: The patient was informed of the risks and benefits of the procedure. These include but are not limited to complications of anesthesia, postoperative infection, incomplete relief of symptoms, recurrence of symptoms, damage to blood vessels, nerves and tendons, deep venous thrombosis, pulmonary embolism and possible need for repeat surgery in the future. Indications for Surgery: 73-year-old lady with longstanding history of hypertension presents to the hospital with a presyncopal was found to have complete heart block. Patient was admitted and she was monitored, transcutaneous pads were placed for the need of transcutaneous pacing. Right IJ was placed also for possible intravenous pacemaker. However patient continued to be stable onto the day of the procedure were she is planned to have a dual-chamber pacemaker. Name of Procedure Performed 1. Venogram via the left antecubital vein to assess the left axillary vein, left subclavian vein, as well as the innominate veins and the superior vena cava. 2. Ultrasound-guided venous access to the left subclavian vein. 3. Successful implantation with a dual-chamber pacemaker with DDD-R programming. 4. Device interrogation showing 40 functional atrial and ventricular leads. 5. Conscious sedation using25 mcg of fentanyl as well as a mg IV midazolam. Procedure Details Procedure Details: Procedure note and vascular access: After informed consent was obtained, risks, benefits, complications, and alternatives were discussed in details with the patient who agrees to have the procedure done. Vancomycin1 g IV was given as preop prophylaxis, a strict sterile technique was used during the procedure, At the beginning of the procedure venogram was obtained using left antecubital vein vascular access and 10 cc of contrast followed by chasing of 20 cc normal saline, the left deltopectoral area was prepped and draped in regular sterile fashion. Patient received conscious sedation with25 mcg of fentanyl as well as a mg of midazolam under the direct supervision of the primary sld educational aide. Total of 20 cc of 1% xylocaine was instilled locally to the deltopectoral groove. Before 1.5 Inch transfer incision was made 1 cm below the medial portion of the mid left clavicle. Pacemaker pocket was created underneath the incision using blunt dissection of the deltopectoral fascia and subcutaneous tissue. Then with the help of fluoroscopic guidance as well as ultrasound guidance we were able to identify the location of the subclavian vein on the left side which was puncture directly with good blood flashback. A J-tip wire was then advanced all the way to the brachiocephalic SVC junction, an eight [place]onian sheath was then with a dilator was used and was advanced over the wire to brachiocephalic vein under fluoroscopic guidance. RV lead was advanced and with the help of multiple shaped stylets were able to be parked in the right medina tricular lead in the right ventricular apical area, then was attached to the rhythm analyzer electrodes, once it is confirmed to be in good position they were anchored using active fixation a 2nd assessment of threshold output sensitivity and impedance were done and confirmed adequate attachment to the myocardial tissue. After confirming a good threshold and output stylet was ret racted and lead was secured to the deltopectoral muscle Using Ethibond 0 0 sutures. Then the peel-away sheath was removed the same wire was used and another sheath of six Macedonian size was advanced through the distal part of the left subclavian vein followed which right atrial lead was advanced into the left atrial appendage the help of a curved stylet, after confirming position using checking electrodes. active fixation was made and lead was secured secured to the deltopectoral fascia using the same Ethibond suture., then both leads were connected to the generator, generator then was placed to the pocket, vancomycin solution was used to irrigate the pacemaker pocket, then vancomycin powder was sprayed inside the pocket before multilevel suturing was done involving the deltopectoral fascia the subcutaneous fascia finally the cutaneous layer. Using [place] Vicryl 2-0, 3-0 and finally 4.0 respectively. Then a Steri-Strips was placed over the wound and also Dermabond micro gel., Manufacture Specifics of the leads and generator were as follows: 1. Right atrial lead soleus S45 reference# [id number] serial# [id number] [employer]. . 2. Right ventricular lead soleus S53 reference# [id number] serial# [id number] [employer] . 3. Generator was a door eight DR-T reference #[id number] serial# [id number] [employer] . The set up parameters of the pacemaker was as follows: 1. Atrial lead was sensing 0.4 millisecond. The capture of the right atrial lead threshold was 0.6 volts in the P wave at 4.1 mV with the impedance of526 ohms, the RA sensitivity was set at 0.5 mV 2. Ventricular lead sensing was at 0.4 milliseconds with a capture threshold of 0.6 volts and R-wave at 4.9 mV with the impedance of 819 ohms, RV sensitivity was set at 2 mV. 3. Program sitting was DDD-R minimal heart rate 75, maximum heart rate 130 beats per minute. With the av delay 150 millisecond on PVARP of 250 milliseconds. Impression and plan: 1. Successful implantation of dual-chamber pacemaker for sick sinus syndrome. 2. Patient would need chest x-ray to rule out normal thorax, would need a 2nd x- ray tomorrow morning for delayed Pneumothorax. 3. Patient would need interrogation of device tomorrow morning before she leaves the hospital. 4. Patient would follow post pacemaker implantation obstruction, involving seven day of prophylactic antibiotic. 5. Patient we will be seen in the pacemaker clinic in one week to 10 day time from her discharge. 6. Patient will need to resume all her antiplatelet therapy given recent history of stent implantation in November 23, 2023. Condition Good Disposition ELISE SCOTT MD Mar 13, 2024 17:49
--- NOTE | 2024-03-13 18:12 | DVH ---
EXAMINATION: AP portable chest radiograph CLINICAL HISTORY: S/P PACEMAKER COMPARISON: XY CHEST XRAY 1 VIEW on DOS: 03/11/24, XY CHEST PORTABLE on DOS: 03/11/24 TECHNIQUE: Single-view chest x-ray FINDINGS: Right internal jugular catheter in place with the tip in the superior vena cava above the right atriu m.. Dual-chamber pacemaker in place with pulse generator over the left chest. IMPRESSION: 1. Pacemaker in place with pulse generator over the left chest. 2. No pneumothorax on the left.
[2024-03-13] MEDS: VANCOMYCIN 1GM/250ML KIT 200 ML IV SCH (22:39)
[2024-03-14 05:00] VITALS: BP 127/75; PULSE 81; RESP 18; TEMP 98.1; O2SAT 97
--- NOTE | 2024-03-14 06:30 | DVH ---
CHEST RADIOGRAPH Indication: CXR FOR PACEMAKER/ICD LEAD PLACEMENT Technique: Single-view chest x-ray Comparison: XY CHEST PORTABLE on DOS: 03/13/24, XY CHEST XRAY 1 VIEW on DOS: 03/11/24, XY CHEST PORTABL E on DOS: 03/11/24, XY CHEST PORTABLE on DOS: 03/13/24 FINDINGS: Right internal jugular catheter in place with the tip in the superior vena cava above the right atriu m.. Dual-chamber pacemaker in place with pulse generator over the left chest. IMPRESSION: 1. Pacemaker in place with pulse generator over the left chest. 2. No pneumothorax on the left.
[2024-03-14 07:00] LABS: Alanine Aminotransferase 10 U/L (7-40); Albumin 3.7 g/dL (3.2-4.8); Alkaline Phosphatase 69 U/L (46-116); Anion Gap 7 (5-15); Aspartate Aminotransferase 14 U/L (13-40); BUN/Creatinine Ratio 20.8 (10.0-20.0); Calcium 9.8 mg/dL (8.7-10.4); Carbon Dioxide 24 mmol/L (20-31); Glucose 87 mg/dL (74-106); Potassium 4.2 mmol/L (3.5-5.1); Sodium 139 mmol/L (136-145); Triglycerides 112 mg/dL (< 150)
[2024-03-14 07:01] LABS: Cholesterol 162 mg/dL (< 200); HDL Cholesterol 40 mg/dL (40-59)
[2024-03-14 07:02] LABS: Bilirubin, Total 0.5 mg/dL (0.2-1.0); Total Protein 5.7 g/dL (5.7-8.2)
[2024-03-14 07:04] LABS: Blood Urea Nitrogen 25 mg/dL (9-23); Chloride 108 mmol/L (98-107); LDL Cholesterol 104 mg/dL (< 100)
[2024-03-14 08:00] VITALS: PULSE 73
[2024-03-14 08:55] VITALS: BP 142/87; PULSE 81; RESP 16; TEMP 98.7; O2SAT 97
--- NOTE | 2024-03-14 13:46 | DVHPN2 ---
Consult Progress Note Date Seen: Mar 14, 2024 Subjective Review of Systems: CVS:Normal, RESPIRATORY:Normal, NEURO:Normal Objective vital signs Vital Sign Date Time Temp Pulse Resp B/P (MAP) Pulse Ox O2 Delivery O2 Flow Rate FiO2 03/14/24 09:22 142/87 03/14/24 08:55 98.7 81 16 97 98.7 03/14/24 08:00 Room Air* 0 21 Total Intake and Output 03/13/24 03/13/24 03/14/24 15:00 23:00 07:00 Intake Total 525 ml Balance 525 ml medications Current Medications Medications Dose Ordered Sig/Hector Route Start Time Stop Time Status Last Admin Dose Admin Sodium Chloride 1,000 ml @ 75 mls/hr [id number] IV 03/11/24 12:15 03/14/24 07:07 75 MLS/HR Atorvastatin Calcium 40 mg HS PO 03/11/24 22:00 03/13/24 22:38 40 MG Acetaminophen 650 mg Q6HP PRN PO 03/11/24 12:15 03/14/24 07:07 650 MG Zolpidem Tartrate 5 mg QHSP PRN PO 03/11/24 12:15 Lorazepam 0.5 mg Q6HP PRN PO 03/11/24 12:15 Docusate Sodium 100 mg DAILY PO 03/12/24 10:00 Ondansetron HCl 4 mg Q4HP PRN IV 03/11/24 12:15 Al Hydrox/Mg Hydrox/Simethicone 30 ml Q6HR PRN PO 03/11/24 12:15 Nitroglycerin 0.4 mg Q5MINP PRN SL 03/11/24 12:15 Morphine Sulfate 2 mg Q30M PRN IV 03/11/24 12:15 Hydralazine HCl 10 mg Q6HP PRN IV 03/11/24 15:30 03/11/24 17:03 10 MG Losartan Potassium 100 mg DAILY PO 03/12/24 10:00 03/14/24 09:21 100 MG Nifedipine 60 mg DAILY PO 03/12/24 10:00 03/14/24 09:22 60 MG Examination: LUNGS:Normal, CVS:Normal, SKIN:Abnormal (Left upper chest incision, intact), NEURO:Normal laboratory and microbiology Laboratory Tests 03/14/24 05:32 03/12/24 07:19 Test 03/14/24 05:32 Range/Units Serum Glucose 87 74-106 mg/dL Problem List/Assessment/Plan Problem List/Assessment/Plan (Dr. Vale) * Complete Heart Block - TSH WNL. Echocardiogram revealed EF 55%. Status post dual-chamber pacemaker implantation completed on 03/14/24 ([facility]ron[facility]). * Uncontrolled HTN - SBP 140s mmHg. Continue Nifedipine 60 mg mg p.o. daily, losartan 100 mg p.o. daily. * Medication noncompliance - strongly advised compliance with medication. The patient underwent a successful permanent pacemaker implantation. CXR and post-procedure interrogation WNL. Avoid weight bearing to left upper extremity. Follow up for wound check on 03/20/24 at 0830. Interrogation on 04/10/24 at 0945. Follow-up with Dr. Valencia on 04/20/24 at 1100. There is no further cardiac work-up indicated at this time. Please call if in need to re-consult. Thank you for allowing us to participate in this patient's care. This medical document was created using an electronic medical record system with voice recognition software and computerized dictation system. Although this document has been carefully reviewed, there might still be some phonetic and typographical errors. Occasional wrong-word or ``sound-alike substitutions may have occurred due to the inherent limitations of voice recognition software. These areas are purely typographical due to imperfections of the software programs and do not reflect any compromise in the patient's medical care. Please read the chart carefully and recognize, using context, where these substitutions have occurred. Plan discussed with: Patient, Other Date of Service: Mar 14, 2024 Billing Provider: SHASHI VALE MD Cardiology Common Codes: [id number] [facility] Mar 14, 2024 13:46
[2024-03-14] MEDS ORDERED: LOSA-535 PO (14:21)
[2024-03-14] MEDS ORDERED: NIFE1TAB30 PO (14:21)
[2024-03-14] MEDS ORDERED: DOXY1CAP57 PO (14:22)
[2024-03-14] MEDS ORDERED: ATOR-507 PO (14:23)
[2024-03-14 14:34] VITALS: BP 129/84; PULSE 82; RESP 17; TEMP 98; O2SAT 95
--- NOTE | 2024-03-14 14:36 | DVHDS2 ---
Discharge Summary Date of Admission Mar 11, 2024 at 12:10 Date of Discharge: Mar 14, 2024 Labs/Diagnostic Data: Laboratory Results Test 03/14/24 05:32 03/13/24 18:40 03/13/24 10:14 03/13/24 07:00 Sodium Level 139 mmol/L (136-145) Potassium Level 4.2 mmol/L (3.5-5.1) Chloride Level 108 mmol/L (98-107) Carbon Dioxide Level 24 mmol/L (20-31) Anion Gap 7 (5-15) Blood Urea Nitrogen 25 mg/dL (9-23) Creatinine 1.20 mg/dL (0.550-1.02) Glomerular Filtration Rate Calc 48 mL/min (>90) BUN/Creatinine Ratio 20.8 (10.0-20.0) Serum Glucose 87 mg/dL (74-106) Calcium Level 9.8 mg/dL (8.7-10.4) Magnesium Level 2.0 mg/dL (1.6-2.6) Total Bilirubin 0.5 mg/dL (0.2-1.0) Aspartate Amino Transferase (AST) 14 U/L (13-40) Alanine Aminotransferase (ALT) 10 U/L (7-40) Alkaline Phosphatase 69 U/L (46-116) Total Protein 5.7 g/dL (5.7-8.2) Albumin 3.7 g/dL (3.2-4.8) Triglycerides Level 112 mg/dL (< 150) Cholesterol Level 162 mg/dL (< 200) LDL Cholesterol 104 mg/dL (< 100) HDL Cholesterol 40 mg/dL (40-59) POC Glucose 118 mg/dl (70-106) Prothrombin Time 11.4 sec (9.3-11.8) Prothrombin Time INR 1.08 (0.9-1.15) Activated Partial Thromboplast Time 26.7 SEC (24.5-34.5) Urine Color Colorless (Yellow) Urine Clarity Clear (Clear) Urine pH 6.5 (5.0-9.0) Urine Specific [place] 1.010 (1.001-1.035) Urine Protein Negative (Negative) Urine Ketones Negative (Negative) Urine Blood Negative /uL (Negative) Urine Nitrite Negative (Negative) Urine Bilirubin Negative (Negative) Urine Urobilinogen Normal mg/dL (Negative) Urine Leukocyte Esterase Negative /uL (Negative) Urine RBC None seen /hpf (0 - 4) Urine WBC <1 /hpf (0 - 5) Urine Squamous Epithelial Cells None seen /hpf (<5) Urine Bacteria None seen /hpf (None Seen) Urine Glucose Normal mg/dL (Normal) Test 03/12/24 07:19 03/11/24 15:52 03/11/24 14:33 03/11/24 10:00 White Blood Count 8.1 10^3/uL (4.4-10.8) Red Blood Count 4.67 10^6/uL (4.0-5.20) Hemoglobin 14.4 g/dL (12.2-16.2) Hematocrit 42.8 % (36.0-46.0) Mean Corpuscular Volume 91.8 fL (80.0-100.0) Mean Corpuscular Hemoglobin 30.9 pg (28.0-32.0) Mean Corpuscular Hemoglobin Concent 33.7 g/dL (32.0-36.0) Red Cell Distribution Width 14.1 % (11.8-14.3) Platelet Count 263 10^3/uL (140-450) Mean Platelet Volume 8.0 fL (6.9-10.8) Neutrophils (%) (Auto) 69.8 % (37.0-80.0) Lymphocytes (%) (Auto) 18.1 % (10.0-50.0) Monocytes (%) (Auto) 9.4 % (0.0-12.0) Eosinophils (%) (Auto) 2.4 % (0.0-7.0) Basophils (%) (Auto) 0.3 % (0.0-2.0) Neutrophils # (Auto) 5.7 10 ^3/uL (1.6-8.6) Lymphocytes # (Auto) 1.5 10 ^3/uL (0.4-5.4) Monocytes # (Auto) 0.8 10 ^3/uL (0-1.3) Eosinophils # (Auto) 0.2 10 ^3/uL (0-0.8) Basophils # (Auto) 0 10 ^3/uL (0-0.2) Nucleated Red Blood Cells 0.1 % Thyroid Stimulating Hormone (TSH) 3.35 uIU/mL (0.55-4.78) Free Thyroxine (T4) Calculated 1.28 ng/dL (0.89-1.76) Troponin I High Sensitivity 19 ng/L (</=34) B-Type Natriuretic Peptide 230.34 pg/mL (0-100) Other Laboratory Tests 03/14/24 05:32 03/12/24 07:19 Brief Hx & Hospital Course: Final diagnoses: Complete heart block Bradycardia due to heart block s/p permanent pacemaker placement Uncontrolled hypertension She was admitted for sick sinus syndrome and bradycardia, permanent pacemaker was placed successfully She did well overnight Discharge home today F/u next week Resume home meds Condition at Discharge: Stable Final Diagnosis/Problems List Complete heart block s/p permanent pacemaker placement Bradycardia due to heart block Uncontrolled hypertension Discharge Disposition: Home SNF Discharge Will this Physician continue t: No Discharge Statement: "Patient was advised to return to the ER or call 911 if any headaches, dizziness, shortness of breath, chest pain, abdominal pain, bleeding, fevers, or worsening of medical condition. Patient was counseled about treatment plan, medications, possible side effects, patientverbalized understanding. All questions were answered to the best of my ability. This discharge took greater then 30 minutes in planning, reviewing documentation, counseling the patient, and discussing with other team members." ASSESSMENT ASSESSMENT Assessment Successful implantation of dual-chamber pacemaker via left subclavianvenous access. That was done under ultrasound guidance. DDDR pacemakerwas successfully placed without obvious complication. Date of Service: Mar 14, 2024 Billing Provider: ANETTE CALIX MD Common Visit Codes: NOT BILLABLE ANETTE CALIX MD Mar 14, 2024 14:36
[2024-03-14 15:18] VITALS: BP 127/74; PULSE 85; RESP 17; TEMP 97.3; O2SAT 96
[2024-03-14] MEDS: LORATADINE 10 MG TAB PO ONE (15:44)
[2024-03-14 16:46] VITALS: BP 127/74; PULSE 85; RESP 17; TEMP 97.3; O2SAT 96
== END 2024-03-14 18:38 | disposition home or self-care (01) | DRG 243 ==
LOC: ER 10:06 → TELE 12:10 → TELE-EAST 03-13 19:25
PROVIDERS: ADMIT Hospitalist; ATTEND Internal Medicine Geriatric Medicine
PROC: 02HV33Z Insertion of Infusion Device into Superior Vena Cava, Percutaneous Approach (ICD-10-PCS; 2024-03-11)
PROC: B548ZZA Ultrasonography of Superior Vena Cava, Guidance (ICD-10-PCS; 2024-03-11)
PROC: 0JH606Z Insertion of Pacemaker, Dual Chamber into Chest Subcutaneous Tissue and Fascia, Open Approach (ICD-10-PCS; principal; 2024-03-13)
PROC: 02H63JZ Insertion of Pacemaker Lead into Right Atrium, Percutaneous Approach (ICD-10-PCS; 2024-03-13)
PROC: 02HK3JZ Insertion of Pacemaker Lead into Right Ventricle, Percutaneous Approach (ICD-10-PCS; 2024-03-13)
PROC: B517YZZ Fluoroscopy of Left Subclavian Vein using Other Contrast (ICD-10-PCS; 2024-03-13)
PROC: B51N1ZZ Fluoroscopy of Left Upper Extremity Veins using Low Osmolar Contrast (ICD-10-PCS; 2024-03-13)
PROC: B518YZA Fluoroscopy of Superior Vena Cava using Other Contrast, Guidance (ICD-10-PCS; 2024-03-13)
DX: I49.5 Sick sinus syndrome (principal); I44.2 Atrioventricular block, complete; I45.10 Unspecified right bundle-branch block; I10 Essential (primary) hypertension; F17.200 Nicotine dependence, unspecified, uncomplicated; R73.9 Hyperglycemia, unspecified; Z79.899 Other long term (current) drug therapy; Z91.148 Patient's other noncompliance with medication regimen for other reason
CPT/HCPCS: 33208; 36012; 36415; 71045; 80048; 80053; 80061; 81001; 82962; 83735; 83880; 84439; 84443; 84484; 85025; 85610; 85730; 93005; 93306; 96374; 99152; 99291; G0378; J1815; J2250; J2405

== ENCOUNTER 2024-09-13 13:12 | Inpatient (IN) | payer OTHER, MEDICAID ==
[~2024-09-13] VITALS: Ht 162.6 cm; Wt 61.3 kg
[~2024-09-13 13:12] MED LIST changes: -ASPirin 325 MG TAB PO ONE; +ATOR-507 PO; +DOXY1CAP57 PO; +LOSA-535 PO; +NIFE1TAB30 PO
--- NOTE | 2024-09-13 13:27 | ED.PDOC ---
Musculoskeletal HPI Comments This is a 74 year old female GENIE presents to the ED with chief complaint of left hip pain. Patient reports that she had slipped and fell onto her left side 2 weeks ago, injuring her rleft hip. Patient relays that she visited [facility] at the time of injury and was told there were no fractures noted, however, later on she had received a call from an PORTER LUGGAGE from the hospital and was told she had a slipped disc. Patient states that she has been experiencing persistent left hip pain and is unable to ambulate on her own. Patient denies any numbness, weakness, tingling, chest pain, SOB, or further injury at this time. Time Seen by MD: 13:23 Reviewed Notes: Nurses Notes, Thread Marker Notes, Medications, Allergies Allergies: Coded Allergies: NO KNOWN ALLERGIES (Unverified , 03/11/24) Home Meds Active Scripts Atorvastatin Calcium (Lipitor) 40 Mg Tab, 1 TAB PO DAILY, #30 TAB 5 Refills Prov:ANETTE CALIX MD 03/14/24 Doxycycline Monohydrate (Doxycycline Monohydrate) 100 Mg Cap, 1 CAP PO BID, #14 CAP Prov:ANETTE CALIX MD 03/14/24 Losartan Potassium (Losartan Potassium) 100 Mg Tab, 1 TAB PO DAILY, #30 TAB 5 Refills Prov:ANETTE CALIX MD 03/14/24 Nifedipine (Nifedipine Er) 60 Mg Tab, 1 TAB PO DAILY, #30 TAB 5 Refills Prov:ANETTE CALIX MD 03/14/24 Information Source: Patient, Emergency Med Personnel Mode of Arrival: EMS Location: Left Extremity Location: Hip Timing: Weeks Prehospital treatment: None Severity: Moderate Able to Move Extremity: Yes Bear Weight: No Pain: Moderate Mechanism: Blunt Trauma Circumstances: Fall Onset of Symptoms: After Trauma Symptoms: Pain DVT Risk Factors: NONE Last Tetanus: Unknown Past Medical History PAST MEDICAL HISTORY: HTN Surgical History: Denies all surgeries CYTOLOGY TECHNOLOGIST History: No Pertinent CYTOLOGY TECHNOLOGIST History Family History Family History: Unknown Social History Smoker: Other Alcohol: Rarely Drugs: Denies Drug Use Lives In: Home Constitutional: denies: chills, diaphoresis, fatigue, fever, malaise, sweats, weakness, others EENTM: denies: blurred vision, double vision, ear bleeding, ear discharge, ear drainage, ear pain, ear ringing, eye pain, eye redness, hearing loss, mouth pain, mouth swelling, nasal discharge, nose bleeding, nose congestion, nose pain, photophobia, tearing, throat pain, throat swelling, voice changes, others Respiratory: denies: cough, hemoptysis, orthopnea, SOB at rest, shortness of breath, SOB with excertion, stridor, wheezing, others Cardiovascular: denies: chest pain, dizzy spells, diaphoresis, Dyspnea on exertion, edema, irregular heart beat, left arm pain, lightheadedness, palpitations, PND, syncope, others Gastrointestinal: denies: abdomen distended, abdominal pain, blood streaked bowels, constipated, diarrhea, dysphagia, difficulty swallowing, hematemesis, melena, nausea, poor appetite, poor fluid intake, rectal bleeding, rectal pain, vomiting, others Genitourinary: denies: abnormal vagina bleeding, burning, dyspareunia, dysuria, flank pain, frequency, hematuria, incontinence, pain, , vagina discharge, urgency, others Neurological: denies: dizziness, fainting, headache, left sided numbness, left sided weakness, numbness, paresthesia, pre-existing deficit, right sided nu mbness, right sided weakness, seizure, speech problems, tingling, tremors, weakness, others Musculoskeletal: reports: others (Left hip pain and limited ROM); denies: back pain, gout, joint pain, joint swelling, muscle pain, muscle stiffness, neck pain Integumetry: denies: bruises, change in color, change in hair/nails, dryness, laceration, lesions, lumps, rash, wounds, others Allergic/Immunocompromised: denies: Difficulty Healing, Frequent Infections, Hives, Itching, others Hematologic/Lymphatic: denies: anemia, blood clots, easy bleeding, easy bruising, swollen glands, others Endocrine: denies: excessive hunger, excessive sweating, excessive thirst, excessive urination, flushing, intolerance to cold, intolerance to heat, unexplained weight gain, unexplained weight loss, others Psychiatric: denies: anxiety, bipolar disorder, depression, hopeless, panic disorder, schizophrenia, sleepless, suicidal, others All Other Systems: Reviewed and Negative Physical Exam General Appearance: No Apparent Distress, Normal HEENT: Normal ENT Inspection, Pharynx Normal, TMs Normal Neck: Full Range of Motion, Non-Tender, Normal, Normal Inspection Respiratory: Chest Non-Tender, Lungs Clear, No Accessory Muscle Use, No Respiratory Distress, Normal Breath Sounds Cardiovascular: No Edema, No JVD, No Murmur, No Gallop, Normal Peripheral Pulses, Regular Rate/Rhythm Breast Exam: Deferred Gastrointestinal: No Organomegaly, Non Tender, No Pulsatile Mass, Normal Bowel Sounds, Soft Genitalia: Deferred Pelvic: Deferred Rectal: Deferred Extremities: No calf tenderness, Normal capillary refill, Normal inspection, Normal range of motion, Non-tender, No pedal edema Musculoskeletal : Location: Left Extremity Location: Hip Apperance: Limited ROM, Tenderness Neurologic: Alert, court bailiff or sheriff II-XII nml as Tested, No Motor Deficits, Normal Affect, Normal Mood, No Sensory Deficits Cerebellar Function: Normal Reflexes: Normal Skin: Dry, Normal Color, Warm Lymphatic: No Adenopathy Was a procedure done? Was a procedure done?: No Differential Diagnosis EXT Differential Diagnosis: Fracture, Dislocation, Contusion X-Ray, Labs, Meds, VS Vital Signs Date Time Temp Pulse Resp B/P (MAP) Pulse Ox O2 Delivery O2 Flow Rate FiO2 09/13/24 13:38 98.6 87 16 111/72 (85) 100 98.6 Lab Test 09/13/24 14:29 Range/Units White Blood Count 6.8 4.4-10.8 10^3/uL Red Blood Count 4.49 4.0-5.20 10^6/uL Hemoglobin 13.8 12.2-16.2 g/dL Hematocrit 41.1 36.0-46.0 % Mean Corpuscular Volume 91.6 80.0-100.0 fL Mean Corpuscular Hemoglobin 30.7 28.0-32.0 pg Mean Corpuscular Hemoglobin Concent 33.5 32.0-36.0 g/dL Red Cell Distribution Width 14.5 H 11.8-14.3 % Platelet Count 271 140-450 10^3/uL Mean Platelet Volume 8.0 6.9-10.8 fL Neutrophils (%) (Auto) 70.1 37.0-80.0 % Lymphocytes (%) (Auto) 20.6 10.0-50.0 % Monocytes (%) (Auto) 7.2 0.0-12.0 % Eosinophils (%) (Auto) 1.8 0.0-7.0 % Basophils (%) (Auto) 0.3 0.0-2.0 % Neutrophils # (Auto) 4.8 1.6-8.6 10 ^3/uL Lymphocytes # (Auto) 1.4 0.4-5.4 10 ^3/uL Monocytes # (Auto) 0.5 0-1.3 10 ^3/uL Eosinophils # (Auto) 0.1 0-0.8 10 ^3/uL Basophils # (Auto) 0 0-0.2 10 ^3/uL Nucleated Red Blood Cells 0.0 % Sodium Level 142 136-145 mmol/L Potassium Level 4.4 3.5-5.1 mmol/L Chloride Level 106 98-107 mmol/L Carbon Dioxide Level 27 20-31 mmol/L Anion Gap 9 5-15 Blood Urea Nitrogen 16 9-23 mg/dL Creatinine 1.12 H 0.550-1.02 mg/dL Glomerular Filtration Rate Calc 52 >90 mL/min BUN/Creatinine Ratio 14.3 10.0-20.0 Serum Glucose 90 74-106 mg/dL Calcium Level 10.6 H 8.7-10.4 mg/dL Current Medications Medications (Trade) Dose Ordered Sig/Hector Route Start Time Stop Time Status Last Admin Acetaminophen/ Hydrocodone Bitart ([place] 5/325MG Tab) 1 tab ONCE ONCE PO 09/13/24 14:00 09/13/24 14:01 DC 09/13/24 14:38 Lt Hip XR: There is no evidence of acute fracture or dislocation. Moderate osteoarthrosis of the bilateral femoroacetabular joints. Degenerative changes pubic symphysis. There is no radiopaque foreign body. L-Spine XR: FINDINGS/IMPRESSION: Chronic appearing vertebral compression fracture of the T12 vertebral body with approximately 50% loss of vertebral body height. Age indeterminate vertebral compression mild fracture of the L2 vertebral body with less than 10% loss of vertebral body height. Correlate with point tenderness. Mild multilevel degenerative disc disease lumbosacral spine. Atherosclerotic vascular disease of the abdominal aorta. Calcific densities project over the right upper quadrant. Images Reviewed?: Images reviewed and evaluated by or Time of 1ST Reevaluation: 14:24 Reevaluation 1ST: Unchanged Patient Education/Counseling: Diagnosis, Treatment Family Education/Counseling: No Family Present Additional Information Previous visits reviewed: 03/11/24 for complete heart block The following tests were ordered, and results were reviewed by me: Lumbar Spine XR, Lt Hip XR, CBC, BMP, UA Additional Information was gathered from interviewing the following independent historians: EMS I reviewed and agreed with the following test results read by other providers: Lumbar Spine XR, Lt Hip XR I discussed treatment and results with medical personnel and: patient Comprehensive systems review obtained and negative except for what is stated in the HPI. Departure 1 Departure Time of Disposition: 15:51 (Patient with worsening left hip pain and inability to ambulate. Given patients intractable pain and inability to ambulate will admit patient for further workup and expert consultation. ) Impression: Primary Impression: Intractable low back pain Additional Impressions: Left hip pain Inability to ambulate due to left hip Disposition: ADMITTED INPATIENT Admit to: Med Surg Condition: Serious Critical Care Note Critical Care Time?: No Stability Stability form required: No Heart Score Heart Score: Heart Score Response (Comments) Value History N/A 0 EKG N/A 0 Age N/A 0 Risk Factors N/A 0 Troponin N/A 0 Total 0 I personally scribed for ALEKSANDR JACKSON MD ([email or web address]) on 09/13/24 at 13:27. Electronically submitted by Panda Garcia ([email or web address]). I personally scribed for ALEKSANDR JACKSON MD ([email or web address]) on 09/13/24 at 14:28. Electronically submitted by Panda Garcia ([email or web address]). ALEKSANDR JACKSON MD Sep 13, 2024 13:27
--- NOTE | 2024-09-13 14:18 | DVH ---
CLINICAL INDICATION: lower back pain and left hip pain after a fall TECHNIQUE: 1 radiographic views of the pelvis and 2 views of the left hip were obtained. Comparison: None FINDINGS/IMPRESSION: There is no evidence of acute fracture or dislocation. Moderate osteoarthrosis of the bilateral femoroacetabular joints. Degenerative changes pubic symphys is. There is no radiopaque foreign body.
--- NOTE | 2024-09-13 14:20 | DVH ---
INDICATION: lower back pain and left hip pain after a fall COMPARISON: None TECHNIQUE: 3 views of the lumbar spine were obtained. FINDINGS/IMPRESSION: Chronic appearing vertebral compression fracture of the T12 vertebral body with approximately 50% los s of vertebral body height. Age indeterminate vertebral compression mild fracture of the L2 vertebral body with less than 10% loss of vertebral body height. Correlate with point tenderness. Mild multilevel degenerative disc disease lumbosacral spine. Atherosclerotic vascular disease of the abdominal aorta. Calcific densities project over the right upper quadrant.
[2024-09-13] MEDS: HYDROcodone-ACET 5/325MG TAB PO ONE ×2 (14:38→21:43)
[2024-09-13 14:55] LABS: Basophils # (auto) 0 10 ^3/uL (0-0.2); Basophils % (auto) 0.3 % (0.0-2.0); Eosinophils # (auto) 0.1 10 ^3/uL (0-0.8); Eosinophils % (auto) 1.8 % (0.0-7.0); Hematocrit 41.1 % (36.0-46.0); Hemoglobin 13.8 g/dL (12.2-16.2); Lymphocytes # (auto) 1.4 10 ^3/uL (0.4-5.4); Lymphocytes % (auto) 20.6 % (10.0-50.0); Mean Corpuscular Hemoglobin 30.7 pg (28.0-32.0); Mean Corpuscular Hgb Conc. 33.5 g/dL (32.0-36.0); Mean Corpuscular Volume 91.6 fL (80.0-100.0); Monocytes # (auto) 0.5 10 ^3/uL (0-1.3); Monocytes % (auto) 7.2 % (0.0-12.0); Neutrophils # (auto) 4.8 10 ^3/uL (1.6-8.6); Neutrophils % (auto) 70.1 % (37.0-80.0); Platelet Count (auto) 271 10^3/uL (140-450); Red Blood Cells 4.49 10^6/uL (4.0-5.20); Red Cell Distribution Width 14.5 % (11.8-14.3); White Blood Cell 6.8 10^3/uL (4.4-10.8)
[2024-09-13 15:09] LABS: Anion Gap 9 (5-15); Carbon Dioxide 27 mmol/L (20-31); Chloride 106 mmol/L (98-107); Potassium 4.4 mmol/L (3.5-5.1); Sodium 142 mmol/L (136-145)
[2024-09-13 15:15] LABS: BUN/Creatinine Ratio 14.3 (10.0-20.0); Blood Urea Nitrogen 16 mg/dL (9-23); Calcium 10.6 mg/dL (8.7-10.4); Glucose 90 mg/dL (74-106)
[2024-09-13] MEDS ORDERED: CYCLOBENZAPRINE HCL 10 MG TAB PO PRN (22:00)
[2024-09-13] MEDS ORDERED: ONDANSETRON HCL 4 MG/2 ML VIAL IV PRN (22:00)
[2024-09-13] MEDS ORDERED: ACETAMINOPHEN 325 MG TAB PO PRN (22:00)
[2024-09-13] MEDS: ATORVASTATIN 20 MG TAB PO SCH (22:45)
[2024-09-13] MEDS: NAPROXEN 500 MG TAB PO ONE (22:45)
[2024-09-13] MEDS: ACETAMINOPHEN 325 MG TAB PO ONE (22:45)
[2024-09-13 22:58] LABS: Urine Bacteria FEW /hpf (None Seen); Urine Blood Negative /uL (Negative); Urine Clarity Clear (Clear); Urine Color Light-Yellow (Yellow); Urine Hyaline Cast MOD /lpf (0 - 2); Urine Mucus FEW (None Seen); Urine Protein, UAD Negative (Negative); Urine Specific Gravity 1.011 (1.001-1.035); Urine Squamous Epithelial Cell FEW /hpf (<5); Urine Urobilinogen Normal (Negative); Urine WBC 5 /HPF (0-5)
[2024-09-13 23:10] VITALS: BP 124/76; PULSE 60; RESP 18; TEMP 97.6; O2SAT 97
[2024-09-13 23:56] VITALS: BP 124/76; PULSE 60; RESP 16; TEMP 97.6; O2SAT 97
[2024-09-14] VITALS (7 sets, daily range): BP systolic 104–128; BP diastolic 56–76; PULSE 61–68; RESP 16–18; TEMP 97.7–98; O2SAT 96–98
--- NOTE | 2024-09-14 00:39 | DVHHP2 ---
History of Present Illness Reason for Visit: Lower back pain History of Present Illness 74-year-old female presents for evaluation of left hip pain. Patient reports having a fall two weeks ago where she landed onto her left hip. She states that since then she has been having lower back pain that radiates to her left hip. Denies urinary or bowel incontinence. No numbness or tingling to lower extremities. No other acute complaints reported. Past Medical History Hypertension Past Surgical History Denies Family History Noncontributory Smoke: No ALCOHOL: none Drugs: None Lives: with Family Review of Systems Review of Systems Review of systems are currently negative otherwise addressed in HPI. Allergies: Coded Allergies: NO KNOWN ALLERGIES (Unverified , 03/11/24) Medications Current Medications Medications Dose Ordered Sig/Hector Route Start Time Stop Time Status Last Admin Dose Admin Nifedipine 60 mg DAILY PO 09/14/24 10:00 Atorvastatin Calcium 40 mg HS PO 09/13/24 22:00 09/13/24 22:45 40 MG Acetaminophen/ Hydrocodone Bitart 1 tab Q4HP PRN PO 09/13/24 22:00 Ondansetron HCl 4 mg Q4HP PRN IV 09/13/24 22:00 Enoxaparin Sodium 40 mg DAILY SC 09/14/24 10:00 Acetaminophen 650 mg Q6HP PRN PO 09/13/24 22:00 Morphine Sulfate 2 mg Q4HPRN PRN IV 09/13/24 22:00 Cyclobenzaprine HCl 5 mg Q8HPRN PRN PO 09/13/24 22:00 Lidocaine 1 patch DAILY TOP 09/13/24 23:15 Exam Vital Signs Vital Signs Date Time Temp Pulse Resp B/P (MAP) Pulse Ox O2 Delivery O2 Flow Rate FiO2 09/13/24 23:10 97.6 60 18 124/76 (92) 97 97.6 09/13/24 21:34 Room Air* 0 21 Exam Gen: 74-year-old female in mild distress Skin: Warm, dry, normal color and texture, no rash. HEENT: Normocephalic atraumatic, mucous membranes moist and pink. Neck: Cervical and supraclavicular nodes normal without enlargement, trachea is midline, thyroid gland is normal without masses. Pulmonary: Clear to auscultation and percussion bilaterally. Cardiac: Regular rate and rhythm. No murmur Abdomen: Soft, nontender, nondistended, bowel sounds present all 4 quadrants, no guarding, no rigidity, no organomegaly. Extremities: No cyanosis, clubbing, no edema Neuro: Cranial nerves II through XII grossly intact, normal affect and speech, no focal motor deficits. Labs/Xrays ORDERING PHYSICIAN: ALEKSANDR JACKSON MD PROCEDURE(s): LHIP - L HIP COMPLETE XRAY REASON: lower back pain and left hip pain after a fall ORDER NUMBER(s): [id number], ACCESSION NUMBER(s): [id number] CLINICAL INDICATION: lower back pain and left hip pain after a fall TECHNIQUE: 1 radiographic views of the pelvis and 2 views of the left hip were obtained. Comparison: None FINDINGS/IMPRESSION: There is no evidence of acute fracture or dislocation. Moderate osteoarthrosis of the bilateral femoroacetabular joints. Degenerative changes pubic symphysis. There is no radiopaque foreign body. RING PHYSICIAN: ALEKSANDR JACKSON MD PROCEDURE(s): LUMB2 - LUMBAR SPINE 3 VIEW REASON: lower back pain and left hip pain after a fall ORDER NUMBER(s): [id number], ACCESSION NUMBER(s): [id number] INDICATION: lower back pain and left hip pain after a fall COMPARISON: None TECHNIQUE: 3 views of the lumbar spine were obtained. FINDINGS/IMPRESSION: Chronic appearing vertebral compression fracture of the T12 vertebral body with approximately 50% loss of vertebral body height. Age indeterminate vertebral compression mild fracture of the L2 vertebral body with less than 10% loss of vertebral body height. Correlate with point tenderness. Mild multilevel degenerative disc disease lumbosacral spine. Atherosclerotic vascular disease of the abdominal aorta. Calcific densities project over the right upper quadrant. Labs Test 09/13/24 22:00 09/13/24 14:29 Range/Units Urine Color Light-yellow Yellow Urine Clarity Clear Clear Urine pH 5.0 5.0-9.0 Urine Specific [place] 1.011 1.001-1.035 Urine Protein Negative Negative Urine Ketones Negative Negative Urine Blood Negative Negative /uL Urine Nitrite Negative Negative Urine Bilirubin Negative Negative Urine Urobilinogen Normal Negative mg/dL Urine Leukocyte Esterase 2+ Negative /uL Urine RBC 2 0 - 4 /hpf Urine Microscopic WBC 5 0-5 /HPF Urine Squamous Epithelial Cells Few <5 /hpf Urine Bacteria Few H None Seen /hpf Urine Hyaline Casts Mod 0 - 2 /lpf Urine Mucus Few None Seen Urine Glucose Normal Normal mg/dL White Blood Count 6.8 4.4-10.8 10^3/uL Red Blood Count 4.49 4.0-5.20 10^6/uL Hemoglobin 13.8 12.2-16.2 g/dL Hematocrit 41.1 36.0-46.0 % Mean Corpuscular Volume 91.6 80.0-100.0 fL Mean Corpuscular Hemoglobin 30.7 28.0-32.0 pg Mean Corpuscular Hemoglobin Concent 33.5 32.0-36.0 g/dL Red Cell Distribution Width 14.5 H 11.8-14.3 % Platelet Count 271 140-450 10^3/uL Mean Platelet Volume 8.0 6.9-10.8 fL Neutrophils (%) (Auto) 70.1 37.0-80.0 % Lymphocytes (%) (Auto) 20.6 10.0-50.0 % Monocytes (%) (Auto) 7.2 0.0-12.0 % Eosinophils (%) (Auto) 1.8 0.0-7.0 % Basophils (%) (Auto) 0.3 0.0-2.0 % Neutrophils # (Auto) 4.8 1.6-8.6 10 ^3/uL Lymphocytes # (Auto) 1.4 0.4-5.4 10 ^3/uL Monocytes # (Auto) 0.5 0-1.3 10 ^3/uL Eosinophils # (Auto) 0.1 0-0.8 10 ^3/uL Basophils # (Auto) 0 0-0.2 10 ^3/uL Nucleated Red Blood Cells 0.0 % Sodium Level 142 136-145 mmol/L Potassium Level 4.4 3.5-5.1 mmol/L Chloride Level 106 98-107 mmol/L Carbon Dioxide Level 27 20-31 mmol/L Anion Gap 9 5-15 Blood Urea Nitrogen 16 9-23 mg/dL Creatinine 1.12 H 0.550-1.02 mg/dL Glomerular Filtration Rate Calc 52 >90 mL/min BUN/Creatinine Ratio 14.3 10.0-20.0 Serum Glucose 90 74-106 mg/dL Calcium Level 10.6 H 8.7-10.4 mg/dL Assessment/Plan Assessment/Plan Assessment Intractable back pain Left hip contusion Hypertension Plan Admit the patient to [facility] to the hospitalist Physical therapy eval MRI of the lower back pending Pain management Continue treatment per orders. Plan discussed with: Patient My Orders Orders - USMAN GABRIEL Procedure Category Date Status Time Nifedipine Er PHA 09/14/24 In Process (Procardia Xl 10:00 Atorvastatin (Lipitor) PHA 09/13/24 In Process 22:00 Pt Request For Service PT 09/13/24 Logged 21:54 Admit ADMIT 09/13/24 Transmitted 21:54 Hydrocodone-Acet PHA 09/13/24 In Process 5/325mg Tab ([place] 22:00 Ondansetron Hcl PHA 09/13/24 In Process (Zofran) 22:00 Enoxaparin Sodium PHA 09/14/24 In Process (Lovenox) 10:00 Cardiac DIET 09/14/24 Transmitted Diet-2gna,Lofat,Lochol Breakfast Condition: Stable SACHI 09/13/24 In Process 21:54 Acetaminophen Tablet PHA 09/13/24 In Process (Tylenol Tablet) 22:00 Bedrest With Bathroom SACHI 09/13/24 In Process Privileg 21:54 Morphine Sulfate PHA 09/13/24 In Process Injection 22:00 Cyclobenzaprine PHA 09/13/24 In Process Tablet (Flexeril 22:00 Lumbar Spine Wo MRI 09/13/24 Logged Contrast 23:13 Lidocaine 5% Topical PHA 09/13/24 In Process Patch (Lidoderm 5% 23:15 Date of Service: Sep 13, 2024 Billing Provider: USMAN GABRIEL Common Visit Codes: [id number] INP/OBS CARE (MOD) USMAN GABRIEL Sep 14, 2024 00:39
[2024-09-14] MEDS: LIDOCAINE 5% TOPICAL PATCH TOP SCH (00:53)
[2024-09-14] MEDS: NIFEdipine ER 30 MG TAB PO SCH (09:48)
[2024-09-14] MEDS: ENOXAPARIN SOD 40 MG/0.4 ML SYRINGE SC SCH (09:49)
[2024-09-14] MEDS ORDERED: ZOLPIDEM TARTRATE 5 MG TAB PO PRN (10:00)
--- NOTE | 2024-09-14 10:00 | DVHPN2 ---
Subjective 74-year-old female with past medical history significant only for hypertension came after a fall about 2 weeks ago when she fell and injured her lower back and left hip area It resulted in compression fractures to her lumbar spine No injuries to the hip joints No head injury Changes from previous H/P or p: Changes Objective Vitals Vital Signs Date Time Temp Pulse Resp B/P (MAP) Pulse Ox O2 Delivery O2 Flow Rate FiO2 09/14/24 09:00 97.8 65 18 127/76 (93) 97 97.8 09/13/24 23:56 Room Air* 0 21 Intake/Output Intake and Output 09/14/24 07:00 Intake Total 0 ml Balance 0 ml Intake Oral 0 ml General Appearance: Alert, Oriented X3, Cooperative, No acute distress Lungs: Clear to auscultation, Normal air movement Cardiovascular: Regular rate, Normal S1, Normal S2 Abdomen: Normal bowel sounds, Soft, No tenderness Extremities: No edema Medications Current Medications Medications Dose Ordered Sig/Hector Route Start Time Stop Time Status Last Admin Dose Admin Nifedipine 60 mg DAILY PO 09/14/24 10:00 Atorvastatin Calcium 40 mg HS PO 09/13/24 22:00 09/13/24 22:45 40 MG Acetaminophen/ Hydrocodone Bitart 1 tab Q4HP PRN PO 09/13/24 22:00 Ondansetron HCl 4 mg Q4HP PRN IV 09/13/24 22:00 Enoxaparin Sodium 40 mg DAILY SC 09/14/24 10:00 Acetaminophen 650 mg Q6HP PRN PO 09/13/24 22:00 Morphine Sulfate 2 mg Q4HPRN PRN IV 09/13/24 22:00 Cyclobenzaprine HCl 5 mg Q8HPRN PRN PO 09/13/24 22:00 Lidocaine 1 patch DAILY TOP 09/13/24 23:15 09/14/24 00:53 1 PATCH Laboratory Results Laboratory Tests 09/13/24 14:29 Chemistry Test 09/13/24 14:29 Calcium Level 10.6 mg/dL (8.7-10.4) H Urinalysis Test 09/13/24 22:00 Urine Color Light-yellow (Yellow) Urine Clarity Clear (Clear) Urine pH 5.0 (5.0-9.0) Urine Specific [place] 1.011 (1.001-1.035) Urine Protein Negative (Negative) Urine Ketones Negative (Negative) Urine Blood Negative /uL (Negative) Urine Nitrite Negative (Negative) Urine Bilirubin Negative (Negative) Urine Urobilinogen Normal mg/dL (Negative) Urine Leukocyte Esterase 2+ /uL (Negative) Urine RBC 2 /hpf (0 - 4) Urine Microscopic WBC 5 /HPF (0-5) Urine Squamous Epithelial Cells Few /hpf (<5) Urine Bacteria Few /hpf (None Seen) H Urine Hyaline Casts Mod /lpf (0 - 2) Urine Mucus Few (None Seen) Urine Glucose Normal mg/dL (Normal) Assessment/Plan Assessment/Plan Lower back pain due to a fall Compression fractures of the T12 and L2 due to the fall Degenerative disc disease of the lumbar spine Insomnia Plan Continue pain management [place] p.r.n. Add naproxen Add Pepcid Physical therapy Add Ambien p.r.n. Monitor the patient closely in the hospital and the rest of the management will depend on the hospital course Full code Plan discussed with: Patient Date of Service: Sep 14, 2024 Billing Provider: ANETTE CALIX MD Common Visit Codes: NOT BILLABLE ANETTE CALIX MD Sep 14, 2024 10:00
[2024-09-14] MEDS: HYDROcodone-ACET 5/325MG TAB PO PRN (12:29)
[2024-09-14] MEDS: FAMOTIDINE 20 MG TAB PO SCH (14:33)
[2024-09-14] MEDS: NAPROXEN 500 MG TAB PO SCH (14:34)
--- NOTE | 2024-09-14 16:14 | DVH ---
PROCEDURE: MRI LUMBAR SPINE WO CONTRAST Indication: lower back pain COMPARISON: None TECHNIQUE: Multiplanar multisequence images of the the lumbar spine are obtained. FINDINGS: For the purpose of this examination, there are 5 lumbar vertebral body types counting from the lumbos acral junction. There is a T12 vertebral body compression fracture with marrow edema, 50% loss height, 3 mm retropuls ion. There is marrow edema and associated T1 hypointense signal. There is likely disruption of the an terior longitudinal ligament at T11-12. The thecal sac 11 mm AP at the level of the T12 vertebral bod y level. Schmorl's nodes at the L2, L3, L4, L5 superior endplates. Lumbar vertebral body heights otherwise pr eserved. Moderate multilevel disc space narrowing and desiccation. Alignment is grossly preserved. T12-L1:3 mm disc protrusion. No spinal canal stenosis. Mild facet and flavum hypertrophy. Mild bilate ral neural foraminal stenosis. L1-2: 3 mm disc protrusion. Mild facet and flavum hypertrophy. No spin al canal stenosis. Mild bilateral neural foraminal stenosis. L2-3: 3 mm disc protrusion. Mild facet and flavum hypertrophy. No spinal canal stenosis. Mild bilater al neural foraminal stenosis. L3-4: 4 mm disc protrusion. Mild facet and flavum hypertrophy. No spinal canal stenosis. Dryg-mu-npbn rate bilateral neural foraminal stenosis. L4-5: 3 mm disc protrusion. Fqum-mr-lmwcekcm facet and flavum hypertrophy. No spinal canal stenosis. Ugil-do-dnjlwcjn bilateral neural foraminal stenosis, ralt-ykgspgc-oeew-right. L5-S1: 3 mm disc protrusion. Isqc-rh-ktisjlmi facet and flavum hypertrophy. No spinal canal stenosis. Moderate to severe right and moderate left neural foraminal stenosis. Sacral perineural sleeve cysts. 1.9 cm left renal cyst. IMPRESSION: 1. Acute to subacute T12 vertebral body compression fracture with 50% loss height, 3 mm retropulsion. 2. 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 3. Moderate lumbar degenerative disc disease. 4. Moderate to severe neural foraminal stenosis L5-S1. Uguz-dn-tqzhkksw neural foraminal stenosis of the remaining levels. 5. No high-grade spinal canal stenosis.
[2024-09-15] VITALS (7 sets, daily range): BP systolic 93–118; BP diastolic 46–74; PULSE 66–77; RESP 16–18; TEMP 97.6–98.1; O2SAT 93–98
[2024-09-15] MEDS: MORPHINE SULFATE INJ 2 MG/ml SYRG IV PRN (12:54)
--- NOTE | 2024-09-15 16:37 | DVHPN2 ---
Subjective Better Less pain Changes from previous H/P or p: Changes Objective Vitals Vital Signs Date Time Temp Pulse Resp B/P (MAP) Pulse Ox O2 Delivery O2 Flow Rate FiO2 09/15/24 15:19 72 16 118/74 (89) 96 09/15/24 09:55 97.8 97.8 09/15/24 08:10 Room Air* 0 21 Intake/Output Intake and Output 09/15/24 07:00 Intake Total 800 ml Balance 800 ml Intake Oral 800 ml # Voids 3 General Appearance: Alert, Oriented X3, Cooperative, No acute distress Lungs: Clear to auscultation, Normal air movement Cardiovascular: Regular rate, Normal S1, Normal S2 Abdomen: Normal bowel sounds, Soft, No tenderness Extremities: No edema Medications Current Medications Medications Dose Ordered Sig/Hector Route Start Time Stop Time Status Last Admin Dose Admin Nifedipine 60 mg DAILY PO 09/14/24 10:00 09/15/24 09:57 60 MG Atorvastatin Calcium 40 mg HS PO 09/13/24 22:00 09/14/24 21:20 40 MG Acetaminophen/ Hydrocodone Bitart 1 tab Q4HP PRN PO 09/13/24 22:00 09/15/24 10:00 1 TAB Ondansetron HCl 4 mg Q4HP PRN IV 09/13/24 22:00 Enoxaparin Sodium 40 mg DAILY SC 09/14/24 10:00 09/15/24 10:00 40 MG Acetaminophen 650 mg Q6HP PRN PO 09/13/24 22:00 Morphine Sulfate 2 mg Q4HPRN PRN IV 09/13/24 22:00 09/15/24 12:54 2 MG Cyclobenzaprine HCl 5 mg Q8HPRN PRN PO 09/13/24 22:00 Lidocaine 1 patch DAILY TOP 09/13/24 23:15 09/15/24 10:04 1 PATCH Zolpidem Tartrate 5 mg HSPRN PRN PO 09/14/24 10:00 Naproxen 250 mg BID PO 09/14/24 10:00 09/15/24 09:58 250 MG Famotidine 20 mg DAILY PO 09/14/24 10:00 09/15/24 09:59 20 MG Laboratory Results Laboratory Tests 09/13/24 14:29 Urinalysis Test 09/13/24 22:00 Urine Color Light-yellow (Yellow) Urine Clarity Clear (Clear) Urine pH 5.0 (5.0-9.0) Urine Specific [place] 1.011 (1.001-1.035) Urine Protein Negative (Negative) Urine Ketones Negative (Negative) Urine Blood Negative /uL (Negative) Urine Nitrite Negative (Negative) Urine Bilirubin Negative (Negative) Urine Urobilinogen Normal mg/dL (Negative) Urine Leukocyte Esterase 2+ /uL (Negative) Urine RBC 2 /hpf (0 - 4) Urine Microscopic WBC 5 /HPF (0-5) Urine Squamous Epithelial Cells Few /hpf (<5) Urine Bacteria Few /hpf (None Seen) H Urine Hyaline Casts Mod /lpf (0 - 2) Urine Mucus Few (None Seen) Urine Glucose Normal mg/dL (Normal) Assessment/Plan Assessment/Plan Lower back pain due to a fall Compression fractures of the T12 and L2 due to the fall Degenerative disc disease of the lumbar spine Insomnia Plan Continue pain management [place] p.r.n. Add naproxen Add Pepcid Physical therapy Add Ambien p.r.n. Monitor the patient closely in the hospital and the rest of the management will depend on the hospital course Full code 09/15/24: Continue pain control Physical therapy Watch closely Plan discussed with: Patient Date of Service: Sep 15, 2024 Billing Provider: ANETTE CALIX MD Common Visit Codes: NOT BILLABLE ANETTE CALIX MD Sep 15, 2024 16:37
[2024-09-16] VITALS (7 sets, daily range): BP systolic 102–128; BP diastolic 63–81; PULSE 60–77; RESP 16–19; TEMP 97.6–98.3; O2SAT 95–98
[2024-09-16] MEDS ORDERED: NAPR-591 PO (12:49)
[2024-09-16] MEDS ORDERED: HYDR-4902 PO (12:49)
--- NOTE | 2024-09-16 17:23 | DVHDS2 ---
Discharge Summary Date of Admission Sep 13, 2024 at 21:54 Date of Discharge: Sep 16, 2024 Labs/Diagnostic Data: Laboratory Results Test 09/13/24 22:00 09/13/24 14:29 Urine Color Light-yellow (Yellow) Urine Clarity Clear (Clear) Urine pH 5.0 (5.0-9.0) Urine Specific [place] 1.011 (1.001-1.035) Urine Protein Negative (Negative) Urine Ketones Negative (Negative) Urine Blood Negative /uL (Negative) Urine Nitrite Negative (Negative) Urine Bilirubin Negative (Negative) Urine Urobilinogen Normal mg/dL (Negative) Urine Leukocyte Esterase 2+ /uL (Negative) Urine RBC 2 /hpf (0 - 4) Urine Microscopic WBC 5 /HPF (0-5) Urine Squamous Epithelial Cells Few /hpf (<5) Urine Bacteria Few /hpf (None Seen) Urine Hyaline Casts Mod /lpf (0 - 2) Urine Mucus Few (None Seen) Urine Glucose Normal mg/dL (Normal) White Blood Count 6.8 10^3/uL (4.4-10.8) Red Blood Count 4.49 10^6/uL (4.0-5.20) Hemoglobin 13.8 g/dL (12.2-16.2) Hematocrit 41.1 % (36.0-46.0) Mean Corpuscular Volume 91.6 fL (80.0-100.0) Mean Corpuscular Hemoglobin 30.7 pg (28.0-32.0) Mean Corpuscular Hemoglobin Concent 33.5 g/dL (32.0-36.0) Red Cell Distribution Width 14.5 % (11.8-14.3) Platelet Count 271 10^3/uL (140-450) Mean Platelet Volume 8.0 fL (6.9-10.8) Neutrophils (%) (Auto) 70.1 % (37.0-80.0) Lymphocytes (%) (Auto) 20.6 % (10.0-50.0) Monocytes (%) (Auto) 7.2 % (0.0-12.0) Eosinophils (%) (Auto) 1.8 % (0.0-7.0) Basophils (%) (Auto) 0.3 % (0.0-2.0) Neutrophils # (Auto) 4.8 10 ^3/uL (1.6-8.6) Lymphocytes # (Auto) 1.4 10 ^3/uL (0.4-5.4) Monocytes # (Auto) 0.5 10 ^3/uL (0-1.3) Eosinophils # (Auto) 0.1 10 ^3/uL (0-0.8) Basophils # (Auto) 0 10 ^3/uL (0-0.2) Nucleated Red Blood Cells 0.0 % Sodium Level 142 mmol/L (136-145) Potassium Level 4.4 mmol/L (3.5-5.1) Chloride Level 106 mmol/L (98-107) Carbon Dioxide Level 27 mmol/L (20-31) Anion Gap 9 (5-15) Blood Urea Nitrogen 16 mg/dL (9-23) Creatinine 1.12 mg/dL (0.550-1.02) Glomerular Filtration Rate Calc 52 mL/min (>90) BUN/Creatinine Ratio 14.3 (10.0-20.0) Serum Glucose 90 mg/dL (74-106) Calcium Level 10.6 mg/dL (8.7-10.4) Other Laboratory Tests 09/13/24 14:29 Brief Hx & Hospital Course: Final diagnoses: Lower back pain due to a fall Compression fractures of the T12 and L2 due to the fall Degenerative disc disease of the lumbar spine Insomnia She had a fall which resulted in the above compression fractures Pain was treated with opioids and NSAIDS She improved She was able to ambulate today DC home on Naprosyn and [facility] Condition at Discharge: Stable Final Diagnosis/Problems List Lower back pain due to a fall Compression fractures of the T12 and L2 due to the fall Degenerative disc disease of the lumbar spine Insomnia Discharge Disposition: Home SNF Discharge Will this Physician continue t: No Discharge Instruct/Medications Diet: Cardiac 2g Na,low cholest Diet comment: Diet: Cardiac, 2gNa, low fat, and low cholesterol. Activity: Light activity Activity comment: Activity: Light activity. Follow Up/Referral: PCP [facility] Medications: Naprosyn 250 mg bid [place] prn Discharge Statement: "Patient was advised to return to the ER or call 911 if any headaches, dizziness, shortness of breath, chest pain, abdominal pain, bleeding, fevers, or worsening of medical condition. Patient was counseled about treatment plan, medications, possible side effects, patientverbalized understanding. All questions were answered to the best of my ability. This discharge took greater then 30 minutes in planning, reviewing documentation, counseling the patient, and discussing with other team members." ASSESSMENT ASSESSMENT Assessment Lower back pain due to a fall Compression fractures of the T12 and L2 due to the fall Degenerative disc disease of the lumbar spine Insomnia Date of Service: Sep 16, 2024 Billing Provider: ANETTE CALIX MD Common Visit Codes: NOT BILLABLE ANETTE CALIX MD Sep 16, 2024 17:23
== END 2024-09-16 15:00 | disposition home health service (06) | DRG 552 ==
LOC: EDBD 13:12 → ER 13:17 → OVERFLOW 21:17 → WEST WING 23:10
PROVIDERS: ADMIT Internal Medicine Geriatric Medicine; ATTEND Internal Medicine Geriatric Medicine
DX: S22.089A Unspecified fracture of T11-T12 vertebra, initial encounter for closed fracture (principal); S32.029A Unspecified fracture of second lumbar vertebra, initial encounter for closed fracture; M51.360 Other intervertebral disc degeneration, lumbar region with discogenic back pain only; G47.00 Insomnia, unspecified; I10 Essential (primary) hypertension; S70.02XA Contusion of left hip, initial encounter; W18.39XA Other fall on same level, initial encounter; F17.200 Nicotine dependence, unspecified, uncomplicated; Z79.2 Long term (current) use of antibiotics; Z79.899 Other long term (current) drug therapy; Y93.89 Activity, other specified; Y92.89 Other specified places as the place of occurrence of the external cause; Y99.8 Other external cause status
CPT/HCPCS: 36415; 72100; 72148; 73502; 80048; 81001; 85025; 97163; G0378